=== PATIENT | male | born 1940 | race Caucasian/White ===

== ENCOUNTER → 2023-05-11 | Outpatient (CLI) | payer MEDICARE ==
[2023-05-11 20:19] LABS: INR 0.94 sec (0.93-1.11); Prothrombin Time 10.7 sec (9.9-11.9)
== END | disposition home or self-care (01) ==
LOC: LABPAT 13:06
PROVIDERS: ATTEND Orthopaedic Surgery
DX: Z01.812 Encounter for preprocedural laboratory examination (principal); Z22.322 Carrier or suspected carrier of Methicillin resistant Staphylococcus aureus
CPT/HCPCS: 85610; 87070

== ENCOUNTER 2023-05-15 07:59 | Observation (INO) | payer MEDICARE ==
--- NOTE | 2023-05-14 14:17 | HP ---
HISTORY AND PHYSICAL DATE OF SURGERY: 05/15/2023. HISTORY OF PRESENT ILLNESS: Rory Moody is an 82-year-old gentleman seen with symptomatic left knee osteoarthritis, failing conservative treatment measures. Options were discussed. He elected to proceed with left total knee arthroplasty. Consents obtained. Medical clearance was provided by Dr. Whitley. PAST MEDICAL HISTORY: Noncontributory. PAST SURGICAL HISTORY: Noncontributory. DAILY MEDICATIONS: Metoprolol. ALLERGIES: None. SOCIAL HISTORY: Denies tobacco use. PHYSICAL EVALUATION OF LEFT KNEE: Range of motion is -12 to 85 degrees. Tenderness in the medial joint line. Crepitus along the medial patellofemoral compartments with range of motion. Pain with patellofemoral compression. Ligaments are stable. Hip rotation without pain. Distal neurovascular exam intact. RADIOGRAPHS: Left knee radiographs reveal severe osteoarthritic changes. IMPRESSION: 1. Left knee osteoarthritis. 2. Hypertension. PLAN: Left total knee arthroplasty. MMODL / IJN: [id number] /
[~2023-05-15 07:59] MED LIST: ACETAMINOPHEN TAB 500 MG TAB PO PRN; DEXAMETHASONE SOD PHOSPHATE 4 MG/ML 1 ML VIAL IV ONE; HYDROmorphone 0.5 MG/0.5 ML SYRINGE IVP PRN; MELOXICAM 7.5 MG TAB PO PRN; MIDAZOLAM 2 MG/2 ML VIAL IV PRN; ONDANSETRON 4 MG/2 ML VIAL IVP ONE; TRANEXAMIC 1,000 MG/100ML-NACL 1,000 MG in SALINE 1 100ML.BAG IVPB PRN
[2023-05-15] MEDS: LACTATED RINGERS 1,000 ML IV SCH (08:35)
[2023-05-15] MEDS ORDERED: MIDAZOLAM 2 MG/2 ML VIAL IVP ONE (09:01)
[2023-05-15] MEDS ORDERED: fentaNYL (PF) 50 MCG/ML 2 ML AMP IVP ONE (09:05)
--- NOTE | 2023-05-15 09:27 | P.ANPRN ---
Procedure Note - Anesthesia - Nerve Block Performed Left Adductor Canal Time Out Performed: Yes (09:00) Date of Procedure: 05/15/23 Procedure Start Time: Procedure Stop Time: Location of Patient: PreOp Indication: Acute Post-Operative Pain, Requested by Surgeon (Dr Rios) Sedation Type: Sedate with meaningful contact maintained Preparation: Sterile Prep, Sterile Dressing Position: Supine Catheter: Indwelling Needle Types: Pajunk Ultrasound used to visualize needle placement: Yes Ultrasound used to observe medication spread: Yes Injectate: 0.5% Ropivacaine (see comment for volume) (20cc) Blood Aspirated: No Pain Paresthesia on Injection Noted: No Resistance on Injection: Normal Image Stored and Saved: Yes Events: Uneventful and Well Tolerated
[2023-05-15] MEDS ORDERED: ROPIVACAINE 1,100 MG, SODIUM CHLORIDE 0.9% 500 ML 330 ML, EMPTY PAIN BALL 1 EACH MISCELLANE PRN ×2 (09:28)
--- NOTE | 2023-05-15 09:28 | P.ANPRN ---
Procedure Note - Anesthesia - Nerve Block Performed Left iPack Time Out Performed: Yes Date of Procedure: 05/15/23 Procedure Start Time: :08 Procedure Stop Time: 09:12 Location of Patient: PreOp Indication: Acute Post-Operative Pain, Requested by Surgeon (Dr Godinez) Sedation Type: Sedate with meaningful contact maintained Preparation: Sterile Prep Position: Supine Catheter: None Needle Types: Pajunk Needle Gauge: 21 Ultrasound used to visualize needle placement: Yes Ultrasound used to observe medication spread: Yes Injectate: 0.5% Ropivacaine (see comment for volume) (15cc +5cc PF Normal saline) Blood Aspirated: No Pain Paresthesia on Injection Noted: No Resistance on Injection: Normal Image Stored and Saved: Yes Events: Uneventful and Well Tolerated
[2023-05-15] MEDS ORDERED: TRANEXAMIC 1,000 MG/100ML-NACL PREMIX BAG ONE (10:23)
[2023-05-15] MEDS ORDERED: SODIUM CHLORIDE 0.9% (PF) 10 ML VIAL ONE (10:23)
[2023-05-15] MEDS ORDERED: ROPIVACAINE 5 MG/ML 30 ML VIAL ONE (10:23)
[2023-05-15] MEDS ORDERED: fentaNYL (PF) 50 MCG/ML 2 ML AMP ONE (10:23)
[2023-05-15] MEDS ORDERED: PROPOFOL 10 MG/ML 20 ML VIAL IV ONE (10:23)
[2023-05-15] MEDS ORDERED: ceFAZolin 1,000 MG in SODIUM CHLORIDE 0.9% 1,000 ML IRRIGATION ONE (10:28)
[2023-05-15] MEDS ORDERED: LACTATED RINGERS 1,000 ML IV ONE (11:00)
[2023-05-15] MEDS ORDERED: HYDROcodone/APAP 5-325MG 1 EACH TAB PO PRN (12:29)
[2023-05-15] MEDS ORDERED: NALOXONE 0.4 MG/ML 1 ML VIAL IV PRN (12:29)
[2023-05-15] MEDS ORDERED: HYDROmorphone 0.5 MG/0.5 ML SYRINGE IVP PRN ×2 (12:29)
[2023-05-15] MEDS ORDERED: HYDROmorphone 1 MG/ML 1 ML SYRINGE IVP PRN (12:29)
[2023-05-15] MEDS ORDERED: ONDANSETRON 4 MG/2 ML VIAL IVP PRN (12:29)
--- NOTE | 2023-05-15 12:29 | P.OP ---
Date of Procedure: 05/15/23 Preoperative Diagnosis: Left knee osteoarthritis Postoperative Diagnosis: Left knee osteoarthritis Procedure(s) Performed: Left total knee arthroplasty Implants: 1. Depuy attune size 8 left cruciate retaining cemented femur 2. Depuy attune size 9 fixed bearing cemented tibial baseplate 3. Depuy attune size 8 fixed bearing cruciate retaining 5 mm polyethylene tibial insert 4. Juliana attune 41 mm all polyethylene cemented patella Anesthesia: regional (Adductor canal catheter, Ipack block), spinal Surgeon: Jamison Rios Tray Setter #1: Pillo Vallejo Estimated Blood Loss (ml): 40 Pathology: none sent Condition: stable Disposition: PACU Indications for Procedure: 82-year-old patient seen with symptomatic left knee osteoarthritis. After having treatment options discussed, he elected to proceed with total knee arthroplasty. Operative Findings: See description of procedure Description of Procedure: Patient was taken to the operative suite after having an adductor canal catheter placed by the department of anesthesia. Patient underwent a spinal anesthetic by the department of anesthesia. Patient was given preoperative IV intake antibiotics and TXA. A well-padded tourniquet was placed about the left lower extremity. The lower extremity was then prepped and draped in the normal sterile orthopedic fashion. The extremity was elevated, a tourniquet was insufflated to 300. A standard anterior incision was made sharply through skin. Dissection was taken down through the subcutaneous soft tissues down to the extensor mechanism. A medial arthrotomy was performed, patella was everted and knee was flexed. There was advanced osteoarthritis noted. I introduced my distal intramedullary femoral drill. I then introduced the distal femoral cutting jig. Pillo HOLDER secured the cutting jig with 2 pins. I held retractors in position while Pillo HOLDER performed the distal femoral resection through the guide area we now removed her distal femoral cutting guide. We now placed our 4-in-1 femoral cutting block and positioned and it was secured with 2 pins by Pillo HOLDER while I held the block in position. The distal femoral finishing was now completed. A proximal tibial cutting guide was positioned. I held the guide in the appropriate position with both hands while Pillo HOLDER inserted stabilizing pins into the guide. Proximal tibial cut was made. We now placed a trial femoral component into position, along with an appropriate size tibial tray and insert. We now took the knee through range of motion and had full extension good flexion and good overall soft tissue balance noted. The patella was everted and stabilized with 2 towel clips held by Pillo HOLDER while I performed a flush with patellar quad tendon utilizing a fresh s awblade. We templated the patella, appropriate drill holes were made. An appropriate trial patella was positioned, knee was taken through full range of motion with the patella tracking very nicely. The trial patella was removed. Drill holes were made through the femoral component. All trial components were removed after marking off the appropriate rotation of the tibia. Retractors were now positioned along the proximal tibia. An appropriate keel punch was made with the appropriate size tibial guide by myself on Pillo HOLDER assisted by holding retractors. At this point appropriate size implants were chosen and opened. The joint was irrigated copiously with pulse lavage mechanical irrigation. The wound was irrigated with pulse lavage mechanical irrigation. We mixed antibiotic methylmethacrylate. We placed the knee into flexion. We placed multiple retractors assisted by Pillo HOLDER to expose the proximal tibia. Once the methyl methacrylate was ready, the tibial component was cemented into place removing any excess methylmethacrylate form by both myself and Pillo HOLDER. The femoral component was cemented into place removing the removing any excess methylmethacrylate performed by both myself and Pillo HOLDER. We then inserted the appropriate size polyethylene tibial insert. We made sure that it was locked into position. We took the knee into full extension, and then back in a flexion making sure we had removed any excess methylmethacrylate. The patellar component was then cemented down and secured with clamp. Excess methylmethacrylate removed. We kept the knee in full extension, patellar clamp in position until methylmethacrylate had hardened. Once it had hardened the patellar clamp was removed. The knee was taken through full range of motion. The patella tracked nicely. There was good soft tissue balancing. The tourniquet was now released. Additional hemostasis was achieved via electrocautery. A second gram of TXA was given. The wound again was irrigated with pulse lavage mechanical irrigation. The extensor mechanism was repaired with Ethibond suture. We checked the repair with range of motion and it was stable. The subcutaneous soft tissues were repaired with Vicryl in layers. The skin was approximated with pernio/Dermabond. Sterile dressings were applied followed by loose web roll and Ralph bandage. The patient was trans ferred to a bed, and taken to recovery in stable and satisfactory condition. Pillo HOLDER assisted with this complex procedure.
--- NOTE | 2023-05-15 13:58 | XR ---
EXAMINATION TYPE: XR knee limited LT DATE OF EXAM: 05/15/2023 1:34 PM INDICATION: Patient age:Male; 82 years old; Reason for study: Evaluation for Postop abnormality and alignment; [facility]. COMPARISON: 04/04/2023. TECHNIQUE: The Left knee(s) was examined in Frontal, lateral and oblique projections. FINDINGS: Status post total knee arthroplasty changes with hardware in appropriate alignment and in tact. No evidence of fracture. Subcutaneous lucencies and lucencies within the joint consistent with surgical changes. Atherosclerosis of the arterial vasculature. IMPRESSION: Status post total knee arthroplasty changes with hardware intact and appropriate alignment. No fractu res identified.
[2023-05-15] MEDS: SODIUM CHLORIDE 0.9% 1,000 ML IV SCH (17:17)
[2023-05-15] MEDS ORDERED: SENNOSIDES-DOCUSATE SODIUM 1 EACH TAB PO SCH (21:00)
[2023-05-15] MEDS: CHOLECALCIFEROL 25 MCG (1000 IU) TABLET PO SCH (21:13)
[2023-05-15] MEDS: VIT A,C & E-LUTEIN-MINERALS 1 EACH TAB PO SCH (21:14)
--- NOTE | 2023-05-15 21:45 | P.CONS ---
History of Present Illness - Reason for Consult Consult date: 05/15/23 Medical management Requesting physician: Jamison Rios - Chief Complaint Left knee surgery - History of Present Illness Very pleasant 82-year-old patient who follows with Dr. George Whitley. Patient underwent left total knee arthroplasty. Postprocedure left knee in a dressing. No nausea vomiting. No chest pain or shortness breath. Did tolerate some diet. Patient does have some intermittent insomnia does take Toprol for anxiety and has arthritis in the joints. Does have a cane and a walker at home. Currently propped up in bed, comfortable Review of systems: GEN.: None EYES: None HEENT: None NECK: None RESPIRATORY: None CARDIOVASCULAR: None GASTROINTESTINAL: None GENITOURINARY: None MUSCULOSKELETAL: Joint pains LYMPHATICS: None HEMATOLOGICAL: None PSYCHIATRY: None NEUROLOGICAL: Intermittent insomnia Past medical history to include: Osteoarthritis, anxiety Social history: Patient retired from [employer] working on [employer]. Did smoke for a short time. No alcohol. Lives alone. Physical examination: VITAL SIGNS: 97.8, 61, 18, 1 57 x 71, 97% on 2 L GENERAL: BMI 31.9, declining with awake and appears comfortable. EYES: Pupils equal. Conjunctiva normal. HEENT: External appearance of nose and ears normal, oral cavity grossly normal. NECK: JVD not raised; masses not palpable. HEART: First and second heart sounds are normal; no edema. LUNGS: Respiratory rate normal; clear to auscultation. ABDOMEN: Soft, nontender, liver spleen not palpable, no masses palpable. PSYCH: Alert and oriented x3; mood and affect normal. MUSCULOSKELETAL:No Clubbing/cyanosis;muscles-grossly intact. OA. Dressing over the left knee. NEUROLOGICAL: Cranial nerves grossly intact; no facial asymmetry, power and sensation grossly intact. LYMPHATICS: No lymph nodes palpable in the axilla and neck INVESTIGATIONS, reviewed in the clinical context: No prior lab work. Assessment and plan: -Left total knee arthroplasty. IV Ancef for infection prophylaxis. Subcu Lovenox for DVT prophylaxis. Pain control. -Primary osteoarthritis Pain control when necessary -Insomnia, intermittent Melatonin as needed. -Anxiety not otherwise specified Patient takes Toprol-XL for the same. Discussed with the patient. -Essential hypertension Patient is on Toprol-XL. We'll see how patient does with better control as currently blood pressure running on the higher side. Care was discussed with the patient. Questions answered. Thank you Dr. Rios Past Medical History Past Medical History: No Reported History History of Any Multi-Drug Resistant Organisms: None Reported Additional Past Surgical History / Comment(s): Lens placed in right eye. Left Total knee arthroplasty. Past Anesthesia/Blood Transfusion Reactions: No Reported Reaction Additional Past Anesthesia/Blood Transfusion Reaction / Comm: Patient has never general anesthesia. Past Psychological History: Anxiety Additional Psychological History / Comment(s): Takes Toprol XL for this Smoking Status: Former smoker Past Alcohol Use History: None Reported Additional Past Alcohol Use History / Comment(s): Quit smoking many yrs ago. Past Drug Use History: None Reported - Past Family History Mother Family Medical History: No Reported History Medications and Allergies Home Medications Medication Instructions Recorded Confirmed Type Cholecalciferol [Vitamin D3 (25 50 mcg PO BID 05/11/23 05/15/23 History Mcg = 1000 Iu)] Metoprolol Succinate (ER) [Toprol 50 mg PO QAM 05/11/23 05/15/23 History Xl] Prevagen Extra Strength 1 tab PO DAILY 05/11/23 05/15/23 History Vit C/E/Zn/Coppr/Lutein/Zeaxan 1 each PO BID 05/11/23 05/15/23 History [Preservision Areds 2 Softgel] Vitamin B. 250 mg PO DAILY 05/11/23 05/15/23 History Allergies Allergy/AdvReac Type Severity Reaction Status Date / Time No Known Allergies Allergy Verified 05/15/23 08:24 Physical Exam Vitals: Vital Signs Temp Pulse Resp BP BP BP Pulse Ox 05/15/23 21:12 98 05/15/23 19:12 97.8 F 61 18 157/71 97 05/15/23 16:42 163/80 05/15/23 16:40 172/80 05/15/23 16:31 98.6 F 66 18 189/88 95 05/15/23 16:00 52 L 17 156/76 95 05/15/23 15:30 50 L 16 183/86 96 05/15/23 15:00 48 L 16 169/89 99 05/15/23 14:30 52 L 16 150/72 99 05/15/23 14:00 51 L 16 148/73 99 05/15/23 13:30 46 L 16 151/70 99 05/15/23 13:15 48 L 16 155/75 99 05/15/23 13:00 50 L 16 132/68 96 05/15/23 12:47 97.5 F L 54 L 16 122/61 94 L 05/15/23 09:44 50 L 14 148/77 99 05/15/23 09:38 48 L 14 149/70 99 05/15/23 09:20 44 L 16 156/68 97 05/15/23 08:18 97.7 F 57 L 16 223/98 98 Intake and Output 05/15/23 05/15/23 05/15/23 06:59 14:59 22:59 Intake Total 1751 Output Total 40 Balance 1711 Intake: IV 1751 Output: Estimated Blood Loss 40 Other: # Voids 1 Weight 106.8 kg 106.8 kg
--- NOTE | 2023-05-16 07:22 | P.PN ---
Progress Note - Text Progress Note Date: 05/16/23 (710) Anesthesiology Postop day 1 status post total knee arthroplasty with adductor canal catheter. Patient doing well. VAS 5 out of 10 out of 10. Gross strength intact in lower extremity. Afebrile. Denies alterations in sensorium. Catheter site intact. Heart regular rate Lungs nonlabored Abdomen nondistended Assessment: Postop day 1 status post total knee arthroplasty with adductor canal catheter Plan: 1.All questions answered. Maintain catheter 2 more days with patient removal at home. Instructions to be given at discharge. 2.This note was dictated using Hand Talk software. Please be advised there is a potential for misspellings or errors in manager [employer].
[2023-05-16] MEDS: SODIUM CHLORIDE 0.9% 1,000 ML IV SCH (07:50)
[2023-05-16] MEDS: LACTATED RINGERS 1,000 ML IV SCH (07:50)
[2023-05-16] MEDS: CHOLECALCIFEROL 25 MCG (1000 IU) TABLET PO SCH (08:06)
[2023-05-16] MEDS: HYDROcodone/APAP 7.5-325MG 1 EACH TAB PO PRN ×2 (08:06→13:08)
[2023-05-16] MEDS ORDERED: ENOXAPARIN 30 MG/0.3 ML SYRINGE SQ SCH (09:00)
[2023-05-16] MEDS ORDERED: METOPROLOL SUCCINATE (ER) 50 MG TAB.ER.24H PO SCH (09:00)
[2023-05-16] MEDS ORDERED: VITAMIN B PO SCH (09:00)
[2023-05-16 11:00] LABS: Basophils # (A) 0.02 X 10*3/uL (0.00-0.10); Basophils % (A) 0.2 %; Eosinophils # (A) 0.02 X 10*3/uL (0.04-0.35); Eosinophils % (A) 0.2 %; HCT 32.9 % (39.6-50.0); HGB 10.5 d/dL (13.0-17.0); Lymphocytes % (A) 9.4 %; MCH 30.1 pg (27.0-32.0); MCHC 31.9 d/dL (32.0-37.0); MCV 94.3 FL (80.0-97.0); Mean Platelet Volume 10.7 FL (9.5-12.2); Monocytes # (A) 1.02 X 10*3/uL (0.20-1.00); Monocytes % (A) 10.7 %; NRBC Per 100 WBC 0 X 10*3/uL (0.00-0.01); Neutrophils # (A) 7.57 X 10*3/uL (1.80-7.70); Neutrophils % (A) 79.3 %; Platelet Count 144 X 10*3/uL (140-440); RBC 3.49 X 10*6/uL (4.40-5.60); RDW 13.9 % (11.5-14.5); WBC 9.55 X 10*3/uL (4.50-10.00)
[2023-05-16] MEDS ORDERED: TAMSULOSIN 0.4 MG CAP.ER.24H PO SCH (11:15)
[2023-05-16] MEDS: VIT A,C & E-LUTEIN-MINERALS 1 EACH TAB PO SCH (11:30)
--- NOTE | 2023-05-16 12:04 | P.PN ---
Subjective Progress Note Date: 05/16/23 Principal diagnosis: Left knee osteoarthritis Patient was seen at bedside this morning sitting up in chair with legs elevated. Patient says he did do well with therapy this morning. He says he walked around the room. Patient says he is looking forward to going home later today. Patient says he has not been able to urinate since surgery. Patient denies any previous difficulties urinating in the past. Patient says his pain is controlled with pain medication. Patient says he did have a difficult time sleeping last night in the hospital. Patient denies chest pain, fever, shortness breath, nausea, vomiting, change in vision, loss of bowel/bladder control. Objective - Vital Signs Vital signs: Vital Signs Temp 98.5 F 05/16/23 06:30 Pulse 82 05/16/23 06:30 Resp 17 05/16/23 06:30 BP 138/74 05/16/23 08:13 Pulse Ox 95 05/16/23 08:13 FiO2 Intake & Output 05/15/23 05/16/23 05/16/23 18:59 06:59 18:59 Intake Total 1751 Output Total 40 950 Balance 1711 -950 Weight 106.8 kg Intake: IV 1751 Output: Urine 950 Straight 950 Estimated Blood Loss 40 Other: Voiding Method Toilet # Voids 1 4 - Exam Left knee: Incision is clean, dry, and intact. The silver foam dressing is in good condition. There is minimal soft tissue swelling and ecchymosis surrounding the medial and lateral aspects of the incision. Calf is soft, no tenderness with palpation. Plantar flexion, dorsiflexion, EHL, FHL are intact. Sensory exam to light touch throughout the extremity is intact, dorsal pedis pulses 2+. - Labs CBC & Chem 7: 05/16/23 04:21 Labs: Abnormal Lab Results - Last 24 Hours (Table) 05/16/23 Range/Units 04:21 RBC 3.49 L (4.40-5.60) X 10*6/uL Hgb 10.5 L (13.0-17.0) d/dL Hct 32.9 L (39.6-50.0) % MCHC 31.9 L (32.0-37.0) d/dL Monocytes # 1.02 H (0.20-1.00) X 10*3/uL Eosinophils # 0.02 L (0.04-0.35) X 10*3/uL Assessment and Plan Assessment: 1. Left knee osteoarthritis -Postop day 1 status post left total knee arthroplasty Plan: 1. Left knee osteoarthritis - patient stable at bedside this morning. Patient did do well with therapy. He does have a walker for home. Plan for discharge home later today. Patient has been unable to urinate on his own. Patient has been straight cathed a couple times. postvoid residual 491 mL. patient did go home with [facility]. Patient to go home on Flomax daily and to follow up with urology in a few days. 2. Appreciate medical management 3. Pain management - [place] 4. DVT prophylaxis - Lovenox in hospital. Going home with aspirin 81 mg twice a day 30 days 5. GI prophylaxis - senna 6. Encourage incentive spirometer use 7. PT/OT - weightbearing as tolerated with walker 8. Discharge planning - discharge home today without services Time with Patient: Less than 30
--- NOTE | 2023-05-16 12:14 | P.DS ---
Providers Expected date of discharge: 05/16/23 Attending physician: Jamison Rios Consults: 05/15/23 12:29 Consult Physician Routine Consulting Provider: George Whitley Consult Reason/Comments: Medical management Do you want consulting provider notified?: Yes 05/15/23 16:32 Consult Physician Routine Consulting Provider: Mark Roe Consult Reason/Comments: medical management Do you want consulting provider notified?: Yes Primary care physician: George Whitley Hospital Course: Date of admission: 05/15/2023 Date of discharge: 05/16/2023 Admission diagnosis: Left knee as her arthritis Discharge diagnosis: Same Attending physician: Dr. Rios Surgical procedures: Left total knee arthroplasty Brief history: Patient is a 82-year-old male with a history of progressive primary left knee osteoarthritis. At this point patient has failed conservative treatment measures and has opted to proceed with a elective left total knee arthroplasty. Hospital course: Details of patient's surgery can be found in operative report. Patient tolerated the procedure well and was subsequently transported to orthopedic floor. Patient's orthopeidc and medical care was provided daily. Patient had daily laboratory tests performed for evaluation of overall blood counts. Patient had daily physical therapy to include strengthening range of motion as well as education with walker ambulation. Patient was treated with Lovenox for their postoperative DVT prophylaxis during their inpatient stay. Patient was noted to have a relatively uneventful postoperative course. Patient reported satisfactory pain control with oral pain medications by postoperative day 1. Patient showed satisfactory progress with physical therapy. Patient moved steadily through the program and had no difficulty meeting the goals by postoperative day 1. Given patient's otherwise satisfactory course and having met physical therapy goals, plan is to discharge patient home with health services on postoperative day 1. Discharge condition/disposition: Patient will be discharged home with health services in stable condition. Discharge medications: Instructions are given on resumption of patient's normal daily medications per primary care recommendation, in addition patient will be prescribed [place]; Flomax; senna; aspirin 81 mg twice a day 30 days. Discharge instructions: 1. Wound care and infection precautions, keep incision dry and covered while showering, no lotions, creams, moisturizers. No soaking, tubs, pools, hottubs. Do not scrub over the incision. 2. Weight-bear as tolerated with walker / cane until follow-up. 3. Ice and elevate when necessary. Do not exceed 20 minutes per hour with ice pack. 4. Utilize compression sleeve until seen at first follow up appointment. 5. Visiting nursing care. 6. Home physical therapy.. 7. Pain meds and anticoagulants per prescription. 8. Pain medication has potential to cause constipation. Increase oral fluid and fiber intake. Contact primary care provider if you have not had a bowel movement within 48 hours after discharge 9. No anti-inflammatory medication until discussed at first post operative visit, this including Motrin, Aleve, Mobic, Diclofenac. 10. Follow up in office at 2 weeks postop with Fernando Humphrey PA-C / Pillo Vallejo PA-C 11. Follow up with your primary care doctor 7-10 days after discharge. 12. Contact [facility] with any questions, . Keep incision clean, dry, intact. While showering, cover silver foam dressing with Saran wrap. Silver foam dressing may be removed in 7 days, 05/22/2023. Once dressing is removed, it is okay to shower directly over incision Assessment: Left knee osteoarthritis Procedures: Left total knee arthroplasty Patient Condition at Discharge: Good Plan - Discharge Summary Discharge Rx Participant: No New Discharge Prescriptions: New Aspirin [Adult Low Dose Aspirin EC] 81 mg PO BID #60 tab Tamsulosin HCl [Flomax] 0.4 mg PO DAILY #7 capsule HYDROcodone/APAP 7.5-325MG [[place] 7.5-325] 1 - 2 tab PO Q6H PRN #36 tab PRN Reason: Pain Sennosides/Docusate Sodium [Senna Plus 8.6-50 mg Softgel] 1 each PO DAILY #20 capsule No Action Cholecalciferol [Vitamin D3 (25 Mcg = 1000 Iu)] 50 mcg PO BID Vitamin B. 250 mg PO DAILY Metoprolol Succinate (ER) [Toprol Xl] 50 mg PO QAM Vit C/E/Zn/Coppr/Lutein/Zeaxan [Preservision Areds 2 Softgel] 1 each PO BID Prevagen Extra Strength 1 tab PO DAILY Discharge Medication List Cholecalciferol [Vitamin D3 (25 Mcg = 1000 Iu)] 50 mcg PO BID 05/11/23 [History] Metoprolol Succinate (ER) [Toprol Xl] 50 mg PO QAM 05/11/23 [History] Prevagen Extra Strength 1 tab PO DAILY 05/11/23 [History] Vit C/E/Zn/Coppr/Lutein/Zeaxan [Preservision Areds 2 Softgel] 1 each PO BID 05/11/23 [History] Vitamin B. 250 mg PO DAILY 05/11/23 [History] Aspirin [Adult Low Dose Aspirin EC] 81 mg PO BID #60 tab 05/16/23 [Rx] HYDROcodone/APAP 7.5-325MG [[place] 7.5-325] 1 - 2 tab PO Q6H PRN #36 tab 05/16/23 [Rx] Sennosides/Docusate Sodium [Senna Plus 8.6-50 mg Softgel] 1 each PO DAILY #20 capsule 05/16/23 [Rx] Tamsulosin HCl [Flomax] 0.4 mg PO DAILY #7 capsule 05/16/23 [Rx] Follow up Appointment(s)/Referral(s): [facility],Equipment [NON-STAFF] - As Needed (Please call [facility] once home to set up the delivery of the Continuous Passive Motion (CPM) machine. ) [facility] [NON-STAFF] - 1-2 Days ([facility] will call you to schedule your in home nursing and physical therapy visits. ) Patricio Andrew MD [STAFF PHYSICIAN] - 1-2 Days Sam Humphrey PAC [PHYSICIAN HOSTING ENGINEER] - 2 Weeks Patient Instructions/Handouts: Knee Replacement (DC) Activity/Diet/Wound Care/Special Instructions: Discharge instructions: 1. Wound care and infection precautions, keep incision dry and covered while showering, no lotions, creams, moisturizers. No soaking, tubs, pools, hottubs. Do not scrub over the incision. 2. Weight-bear as tolerated with walker / cane until follow-up. 3. Ice and elevate when necessary. Do not exceed 20 minutes per hour with ice pack. 4. Utilize compression sleeve until seen at first follow up appointment. 5. Visiting nursing care. 6. Home physical therapy. 7. Pain meds and anticoagulants per prescription. 8. Pain medication has potential to cause constipation. Increase oral fluid and fiber intake. Contact primary care provider if you have not had a bowel movement within 48 hours after discharge 9. No anti-inflammatory medication until discussed at first post operative visit, this including Motrin, Aleve, Mobic, Diclofenac. 10. Follow up in office at 2 weeks postop with Fernando Humphrey PA-C / Pillo Vallejo PA-C 11. Follow up with your primary care doctor 7-10 days after discharge. 12. Contact [facility] with any questions, . Keep incision clean, dry, intact. While showering, cover silver foam dressing with Saran wrap. Silver foam dressing may be removed in 7 days, 05/22/2023. Once dressing is removed, it is okay to shower directly over incision Discharge Disposition: HOME WITH HOME HEALTH SERVICES
[2023-05-16 13:28] VITALS: BP 136/85; PULSE 69; RESP 18; TEMP 98.6
--- NOTE | 2023-05-16 19:46 | P.PN ---
Progress Note - Text Progress Note Date: 05/16/23 - Chief Complaint Left knee surgery - History of Present Illness Very pleasant 82-year-old patient who follows with Dr. George Whitley. Patient underwent left total knee arthroplasty. Postprocedure left knee in a dressing. No nausea vomiting. No chest pain or shortness breath. Did tolerate some diet. Patient does have some intermittent insomnia does take Toprol for anxiety and has arthritis in the joints. Does have a cane and a walker at home. Currently propped up in bed, comfortable 05/16/2023: Doing better. Pain control. No nausea vomiting. Did tolerate her diet. Did ambulate. Medications reviewed. 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 Did smoke for a short time. No alcohol. Lives alone. Physical examination: VITAL SIGNS: 98.6, 69, 18, 1 3695, 95% room air GENERAL: BMI 31.9, sitting up, comfortable EYES: Pupils equal. Conjunctiva normal. HEENT: External appearance of nose and ears normal, oral cavity grossly normal. NECK: JVD not raised; masses not palpable. HEART: First and second heart sounds are normal; no edema. LUNGS: Respiratory rate normal; clear to auscultation. ABDOMEN: Soft, nontender, liver spleen not palpable, no masses palpable. PSYCH: Alert and oriented x3; mood and affect normal. MUSCULOSKELETAL:No Clubbing/cyanosis;muscles-grossly intact. OA. Dressing over the left knee. INVESTIGATIONS, reviewed in the clinical context: White count 9.5 hemoglobin 10.5 platelets 144 No prior lab work. Assessment and plan: -Left total knee arthroplasty. IV Ancef for infection prophylaxis. Subcu Lovenox for DVT prophylaxis. Pain control. -Primary osteoarthritis Pain control when necessary -Probable acute postprocedure blood loss anemia At ferrous sulfate -Insomnia, intermittent Melatonin as needed. -Anxiety not otherwise specified Patient takes Toprol-XL for the same. Discussed with the patient. -Essential hypertension Patient is on Toprol-XL. At ferrous sulfate. Follow-up with Dr. Whitley. Discussed. Thank you Dr. Rios
== END 2023-05-16 14:40 | disposition home health service (06) ==
LOC: OR 07:59 → 4SSUR 12:47 → OR 05-16 12:31
PROVIDERS: ADMIT Orthopaedic Surgery; ATTEND Orthopaedic Surgery
DX: M17.12 Unilateral primary osteoarthritis, left knee (principal); G89.18 Other acute postprocedural pain; F41.9 Anxiety disorder, unspecified; G47.00 Insomnia, unspecified; I10 Essential (primary) hypertension; Z87.891 Personal history of nicotine dependence; Z79.899 Other long term (current) drug therapy
CPT/HCPCS: 94760; 97161; 64999; 64448; 85025; 73560; 27447; G0378; C1776; C1713 ×2; C1751; J2250; J1100; J0690 ×3; J2405 ×2; J3010; J1650; J1170 ×2; J2795; J2704

== ENCOUNTER → 2023-12-01 | Outpatient (CLI) | payer MEDICARE ==
[2023-12-01 15:10] LABS: HCT 36.9 % (39.6-50.0); MCH 29.9 pg (27.0-32.0); MCHC 32.5 g/dL (32.0-37.0); Mean Platelet Volume 10.3 FL (9.5-12.2); NRBC Per 100 WBC 0 X 10*3/uL (0.00-0.01); Platelet Count 208 X 10*3/uL (140-440); RBC 4.01 X 10*6/uL (4.40-5.60); RDW 14.5 % (11.5-14.5); WBC 4.99 X 10*3/uL (4.50-10.00)
[2023-12-01 15:11] LABS: Basophils # (A) 0.06 X 10*3/uL (0.00-0.10); Basophils % (A) 1.2 %; Eosinophils # (A) 0.18 X 10*3/uL (0.04-0.35); Eosinophils % (A) 3.6 %; Lymphocytes # (A) 1.26 X 10*3/uL (0.90-5.00); Lymphocytes % (A) 25.3 %; Neutrophils # (A) 2.97 X 10*3/uL (1.80-7.70); Neutrophils % (A) 59.5 %
[2023-12-01 15:29] LABS: INR 1.05 sec (0.93-1.11); Prothrombin Time 11.3 sec (9.9-11.9)
[2023-12-01 15:32] LABS: BUN/Creat Ratio 26.86 Ratio (12.00-20.00); Blood Urea Nitrogen 18.8 mg/dL (9.0-27.0); Calcium 9.6 mg/dL (8.7-10.3); Carbon Dioxide 27.2 mmol/L (21.6-31.8); Chloride 105 mmol/L (96-109); Glucose 124 mg/dL (70-110); Potassium 4.1 mmol/L (3.5-5.5); Sodium 142 mmol/L (135-145)
== END | disposition home or self-care (01) ==
LOC: LABPAT 08:16
PROVIDERS: ATTEND Orthopaedic Surgery
DX: Z01.812 Encounter for preprocedural laboratory examination (principal); Z22.322 Carrier or suspected carrier of Methicillin resistant Staphylococcus aureus; M17.11 Unilateral primary osteoarthritis, right knee; M25.561 Pain in right knee; I10 Essential (primary) hypertension
CPT/HCPCS: 36415; 80048; 85025; 85610; 87070; 93005

== ENCOUNTER 2023-12-18 06:55 | Inpatient (IN) | payer MEDICARE ==
[2023-12-12 13:17] VITALS: BMI 30.5
--- NOTE | 2023-12-17 20:28 | HP ---
HISTORY AND PHYSICAL DATE OF SURGERY: 12/18/2023. HISTORY OF PRESENT ILLNESS: Rory Moody is an 82-year-old gentleman seen with symptomatic right knee osteoarthritis. We discussed options regarding treatment. He elected to proceed with right total knee arthroplasty. Consent was obtained. Medical clearance was provided by Dr. Stacy. PAST MEDICAL HISTORY: Hypertension. PAST SURGICAL HISTORY: Noncontributory. DAILY MEDICATIONS: 1. Metoprolol. 2. Hydrocodone. ALLERGIES: None reported. SOCIAL HISTORY: Denies tobacco use. PHYSICAL EVALUATION OF THE RIGHT KNEE: Range of motion is negative 4 to 90 degrees. Tenderness along the medial joint line. Crepitance along the medial patellofemoral compartments with range of motion. Pain with patellofemoral compression. Ligaments stable. Hip rotation without pain. His distal neurovascular exam is intact. IMAGING STUDIES: Right knee x-rays reveal severe osteoarthritic changes. IMPRESSION: 1. Right knee osteoarthritis. 2. Hypertension. PLAN: Right total knee arthroplasty. MMODL / IJN: [id number] /
[~2023-12-18 06:55] MED LIST changes: -ACETAMINOPHEN TAB 500 MG TAB PO PRN; -DEXAMETHASONE SOD PHOSPHATE 4 MG/ML 1 ML VIAL IV ONE; -HYDROmorphone 0.5 MG/0.5 ML SYRINGE IVP PRN; -MELOXICAM 7.5 MG TAB PO PRN; -MIDAZOLAM 2 MG/2 ML VIAL IV PRN; -ONDANSETRON 4 MG/2 ML VIAL IVP ONE
[2023-12-18] MEDS: LACTATED RINGERS 1,000 ML IV ONE ×2 (07:46→13:00)
[2023-12-18] MEDS ORDERED: HYDROmorphone 0.5 MG/0.5 ML SYRINGE IVP PRN ×4 (07:49→11:12)
[2023-12-18] MEDS ORDERED: ONDANSETRON 4 MG/2 ML VIAL ONE (07:49)
[2023-12-18] MEDS ORDERED: LIDOCAINE 1% (10MG/ML) FOR IV START INTRADERMA PRN (07:49)
[2023-12-18] MEDS ORDERED: MIDAZOLAM 2 MG/2 ML VIAL IV PRN (07:49)
[2023-12-18] MEDS: DEXAMETHASONE SOD PHOSPHATE 4 MG/ML 1 ML VIAL IV ONE (08:05)
[2023-12-18] MEDS: ACETAMINOPHEN TAB 500 MG TAB PO PRN (08:05)
[2023-12-18] MEDS: ONDANSETRON 4 MG/2 ML VIAL IVP ONE (08:05)
[2023-12-18] MEDS: MELOXICAM 7.5 MG TAB PO PRN (08:05)
[2023-12-18] MEDS: MIDAZOLAM 2 MG/2 ML VIAL IVP ONE ×2 (08:17)
--- NOTE | 2023-12-18 09:03 | P.ANPRN ---
Procedure Note - Anesthesia - Nerve Block Performed Right Adductor Canal Infusion Time Out Performed: Yes (0817) Date of Procedure: 12/18/23 Procedure Start Time: 08:20 Procedure Stop Time: 08:35 Location of Patient: PreOp Indication: Acute Post-Operative Pain, Requested by Surgeon Sedation Type: Sedate with meaningful contact maintained Preparation: Sterile Prep, Sterile Dressing Position: Supine Catheter: Indwelling Needle Types: Pajunk Needle Gauge: 18 Ultrasound used to visualize needle placement: Yes Ultrasound used to observe medication spread: Yes Injectate: 0.5% Ropivacaine (see comment for volume) (20 mL of block solution containing 10 ML of 0.5% ropivacaine mixed with 10 ML of preservative-free normal saline) Narrative: 5 mL of block solution injected after catheter connected in place negative aspiration, and visualized under ultrasound to see the medication spread in the adductor canal Blood Aspirated: No Pain Paresthesia on Injection Noted: No Resistance on Injection: Normal Image Stored and Saved: Yes Events: Uneventful and Well Tolerated
--- NOTE | 2023-12-18 09:04 | P.ANPRN ---
Procedure Note - Anesthesia - Nerve Block Performed Right iPack Single Time Out Performed: Yes (0817) Date of Procedure: 12/18/23 Procedure Start Time: 08:20 Procedure Stop Time: 08:35 Location of Patient: PreOp Indication: Acute Post-Operative Pain, Requested by Surgeon Sedation Type: Sedate with meaningful contact maintained Preparation: Sterile Prep, Sterile Dressing Position: Supine Catheter: None Needle Types: Pajunk Needle Gauge: 21 Ultrasound used to visualize needle placement: Yes Ultrasound used to observe medication spread: Yes Injectate: 0.5% Ropivacaine (see comment for volume) (21 mL of block solution containing 10 ML of 0.5% ropivacaine mixed with 4 MG of dexamethasone, and 10 ML of preservative-free normal saline) Blood Aspirated: No Pain Paresthesia on Injection Noted: No Resistance on Injection: Normal Image Stored and Saved: Yes Events: Uneventful and Well Tolerated
[2023-12-18] MEDS: ceFAZolin 1,000 MG in SODIUM CHLORIDE 0.9% 1,000 ML IRRIGATION ONE (09:40)
[2023-12-18] MEDS ORDERED: ONDANSETRON 4 MG/2 ML VIAL IVP PRN (11:12)
[2023-12-18] MEDS ORDERED: HYDROcodone/APAP 5-325MG 1 EACH TAB PO PRN (11:12)
[2023-12-18] MEDS ORDERED: NALOXONE 0.4 MG/ML 1 ML VIAL IV PRN (11:12)
--- NOTE | 2023-12-18 11:12 | P.OP ---
Date of Procedure: 12/18/23 Preoperative Diagnosis: Right knee osteoarthritis Postoperative Diagnosis: Right knee osteoarthritis Procedure(s) Performed: Right total knee arthroplasty Implants: 1. DePuy attune size 8 right cruciate retaining cemented femur 2. DePuy attune size 9 fixed-bearing cemented tibial baseplate 3. DePuy attune size 8 fixed-bearing cruciate retaining 6 mm polyethylene tibial insert 4. DePuy attune 41 mm all polyethylene cemented patella Anesthesia: regional (Adductor canal catheter, iPAQ block), spinal Surgeon: Jamison Rios Facilities Assistant #1: Sam Humphrey Estimated Blood Loss (ml): 60 Pathology: none sent Condition: stable Disposition: PACU Indications for Procedure: 82-year-old gentleman seen with symptomatic right knee osteoarthritis. After having treatment options discussed, he elected to proceed with total knee arthroplasty Operative Findings: See description of procedure Description of Procedure: Patient was taken to the operative suite after having an adductor canal catheter placed by the department of anesthesia. Patient underwent a spinal anesthetic by the department of anesthesia. Patient was given preoperative IV intake antibiotics and TXA. A well-padded tourniquet was placed about the right lower extremity. The lower extremity was then prepped and draped in the normal sterile orthopedic fashion. The extremity was elevated, a tourniquet was insufflated to 300. A standard anterior incision was made sharply through skin. Dissection was taken down through the subcutaneous soft tissues down to the extensor mechanism. A medial arthrotomy was performed, patella was everted and knee was flexed. There was advanced osteoarthritis noted. I introduced my distal intramedullary femoral drill. I then introduced the distal femoral cutting jig. Fernando HOLDER secured the cutting jig with 2 pins. I held retractors in position while Fernando HOLDER performed the distal femoral resection through the guide area we now removed her distal femoral cutting guide. We now placed our 4-in-1 femoral cutting block and positioned and it was secured with 2 pins by Fernando HOLDER while I held the block in position. The distal femoral finishing was now completed. A proximal tibial cutting guide was positioned. I held the guide in the appropriate position with both hands well Fernando HOLDER inserted stabilizing pins into the guide. Proximal tibial cut was made. We now placed a trial femoral component into position, along with an appropriate size tibial tray and insert. We now took the knee through range of motion and had full extension good flexion and good overall soft tissue balance noted. The patella was everted and stabilized with 2 towel clips held by Fernando HOLDER while I performed a flush with patellar quad tendon utilizing a fresh sawblade. We templated the patella, appropriate drill holes were made. An appropriate trial patella was positioned, knee was taken through full range of motion with the patella tracking very nicely. The trial patella was removed. Drill holes were made through the femoral component. All trial components were removed after marking off the appropriate rotation of the tibia. Retractors were now positioned along the proximal tibia. An appropriate keel punch was made with the appropriate size tibial guide by myself on Fernando HOLDER assisted by holding retractors. At this point appropriate size implants were chosen and opened. The joint was irrigated copiously with pulse lavage mechanical irrigation. The wound was irrigated with pulse lavage mechanical irrigation. We mixed antibiotic methylmethacrylate. We placed the knee into flexion. We placed multiple retractors assisted by Fernando HOLDER to expose the proximal tibia. Once the methyl methacrylate was ready, the tibial component was cemented into place removing any excess methylmethacrylate form by both myself and Fernando HOLDER. The femoral component was cemented into place removing the removing any excess methylmethacrylate performed by both myself and Fernando HOLDER. We then inserted the appropriate size polyethylene tibial insert. We made sure that it was locked into position. We took the knee into full extension, and then back in a flexion making sure we had removed any excess methylmethacrylate. The patellar component was then cemented down and secured with clamp. Excess methylmethacrylate removed. We kept the knee in full extension, patellar clamp in position until methylmethacrylate had hardened. Once it had hardened the patellar clamp was removed. The knee was taken through full range of motion. The patella tracked nicely. There was good soft tissue balancing. The tourniquet was now released. Additional hemostasis was achieved via electrocautery. A second gram of TXA was given. The wound again was irrigated with pulse lavage mechanical irrigation. The extensor mechanism was repaired with Ethibond suture. We checked the repair with range of motion and it was stable. The subcutaneous soft tissues were repaired with Vicryl in layers. The skin was approximated with pernio/Dermabond. Sterile dressings were applied followed by loose web roll and Ralph bandage. The patient was transferred to a bed, and taken to recovery in stable and satisfactory condition. Fernando HOLDER assisted with this complex procedure.
[2023-12-18] MEDS: ROPIVACAINE 1,100 MG, SODIUM CHLORIDE 0.9% 500 ML 330 ML, EMPTY PAIN BALL 1 EACH MISCELLANE PRN (12:03)
--- NOTE | 2023-12-18 12:07 | XR ---
EXAMINATION TYPE: XR knee limited RT DATE OF EXAM: 12/18/2023 11:51 AM CLINICAL INDICATION:Male, 82 years old with history of Evaluation for Postop abnormality and alignmen t; [facility] COMPARISON: None. TECHNIQUE: XR knee limited RT; examined in Frontal, lateral and oblique projections. FINDINGS: Status post total knee arthroplasty changes with hardware in appropriate alignment and in tact. No evidence of fracture. Subcutaneous lucencies and lucencies within the joint consistent with surgical changes. IMPRESSION: Status post total knee arthroplasty changes with hardware intact and appropriate alignment. No fractu res identified.
[2023-12-18] MEDS: hydrALAZINE HCL 20 MG/ML 1 ML VIAL IVP ONE ×3 (13:06→13:56)
[2023-12-18] MEDS: LACTATED RINGERS 1,000 ML IV SCH (15:12)
[2023-12-18] MEDS: SODIUM CHLORIDE 0.9% 1,000 ML IV SCH (15:12)
[2023-12-18] MEDS: HYDROcodone/APAP 7.5-325MG 1 EACH TAB PO PRN (17:04)
--- NOTE | 2023-12-18 20:43 | P.CONS ---
History of Present Illness - Reason for Consult Consult date: 12/18/23 Medical management Requesting physician: Jamison Rios - Chief Complaint Right knee pain - History of Present Illness This is a pleasant 82-year-old patient who follows with Dr. Whitley. Chronic stable medical conditions include hypertension, hard of hearing, primary osteoarthritis in other joints. Patient has undergone right total knee arthroplasty. Ralph wrap in place. Some pain is present. No nausea vomiting. Denies any cardiac history. Reclining in bed. Review of systems: GEN.: Tired EYES: None HEENT: Hard of hearing NECK: None RESPIRATORY: None CARDIOVASCULAR: None GASTROINTESTINAL: None GENITOURINARY: None MUSCULOSKELETAL: Joint pains LYMPHATICS: None HEMATOLOGICAL: None PSYCHIATRY: None NEUROLOGICAL: None Social history: Lives alone. No smoking no alcohol. Used to work for [employer]. Physical examination: VITAL SIGNS: 97.7, 75, 19, 171 x 81, 97% room air GENERAL: BMI 32.8, reclining in bed awake not in distress. EYES: Pupils equal. Conjunctiva angela l. HEENT: External appearance of nose and ears normal, oral cavity grossly normal. NECK: JVD not raised; masses not palpable. HEART: First and second heart sounds are normal; no edema. LUNGS: Respiratory rate normal; clear to auscultation. ABDOMEN: Soft, nontender, liver spleen not palpable, no masses palpable. PSYCH: Alert and oriented x3; mood and affect angela l. MUSCULOSKELETAL:No Clubbing/cyanosis;muscles-grossly intact. Dressing over the right knee. Evidence of OA and other joints NEUROLOGICAL: Cranial nerves grossly intact; no facial asymmetry, power and sensation grossly intact. LYMPHATICS: No lymph nodes palpable in the axilla and neck INVESTIGATIONS, reviewed in the clinical context: December 01, 2023: White count 4.9 hemoglobin 12 platelets 208 potassium 4.1 creatinine 0.7 Assessment plan: -Right total knee arthroplasty Lovenox for DVT prophylaxis. Pain controlled. -Primary osteoarthritis Pain medications as needed -Chronic, hard of hearing -BPH Flomax 0.4 mg a day -Essential hypertension Toprol-XL, benazepril -Obesity BMI 32.8 Weight loss measures Care was discussed with the patient. Questions answered. Thank you Dr. Rios Past Medical History Past Medical History: Hearing Disorder / Deafness, Hypertension Additional Past Medical History / Comment(s): Bilateral hearing aids. History of Any Multi-Drug Resistant Organisms: None Reported Past Surgical History: Joint Replacement Additional Past Surgical History / Comment(s): Lens placed in right eye, total left knee arthroplasty. Past Anesthesia/Blood Transfusion Reactions: No Reported Reaction Additional Past Anesthesia/Blood Transfusion Reaction / Comm: Patient has never general anesthesia. Smoking Status: Never smoker - Past Family History Mother Family Medical History: No Reported History Medications and Allergies Home Medications Medication Instructions Recorded Confirmed Type Cholecalciferol [Vitamin D3 (25 50 mcg PO BID 05/11/23 12/18/23 History Mcg = 1000 Iu)] Metoprolol Succinate (ER) [Toprol 50 mg PO BID 05/11/23 12/18/23 History XL] Prevagen Extra Strength 1 tab PO DAILY 05/11/23 12/18/23 History Vit C/E/Zn/Coppr/Lutein/Zeaxan 1 each PO BID 05/11/23 12/18/23 History [Preservision Areds 2 Softgel] Vitamin B. 250 mg PO DAILY 05/11/23 12/18/23 History Tamsulosin HCl [Flomax] 0.4 mg PO DAILY #7 capsule 05/16/23 12/18/23 Rx Benazepril HCl 10 mg PO QAM 12/12/23 12/18/23 History Allergies Allergy/AdvReac Type Severity Reaction Status Date / Time No Known Allergies Allergy Verified 12/18/23 07:50 Physical Exam Vitals: Vital Signs Temp Pulse Pulse Resp BP BP Pulse Ox 12/18/23 14:37 97.7 F 19 171/81 97 12/18/23 14:12 75 16 150/74 95 12/18/23 13:45 63 16 173/80 96 12/18/23 13:29 63 16 162/79 95 12/18/23 13:14 54 L 16 165/71 94 L 12/18/23 12:44 52 L 16 168/77 95 12/18/23 12:29 55 L 12 169/74 95 12/18/23 12:14 54 L 14 169/73 95 12/18/23 11:59 53 L 12 172/90 95 12/18/23 11:44 61 12 163/78 99 12/18/23 11:29 98 F 64 16 143/71 98 12/18/23 08:36 78 16 168/83 100 12/18/23 08:02 98.7 F 90 16 187/83 95 Intake and Output 12/18/23 12/18/23 12/18/23 06:59 14:59 22:59 Intake Total 1301 Output Total 60 200 Balance 1241 -200 Intake: IV 1301 Output: Urine 200 Estimated Blood Loss 60 Other: # Voids 2 Weight 109.6 kg
[2023-12-18] MEDS ORDERED: ENOXAPARIN 30 MG/0.3 ML SYRINGE SQ SCH (21:00)
[2023-12-18] MEDS: CHOLECALCIFEROL 25 MCG (1000 IU) TABLET PO SCH (21:20)
[2023-12-18] MEDS: METOPROLOL SUCCINATE (ER) 50 MG TAB.ER.24H PO SCH (21:20)
[2023-12-18] MEDS: VIT A,C & E-LUTEIN-MINERALS 1 EACH TAB PO SCH (21:21)
[2023-12-18] MEDS: ZOLPIDEM 5 MG TAB PO STA (23:31)
[2023-12-18] MEDS: ENOXAPARIN 30 MG/0.3 ML SYRINGE SQ SCH (23:32)
[2023-12-18] MEDS: SENNOSIDES-DOCUSATE SODIUM 1 EACH TAB PO SCH (23:38)
[2023-12-19] MEDS: TAMSULOSIN 0.4 MG CAP.ER.24H PO SCH (08:13)
[2023-12-19] MEDS: lisinopriL 10 MG TAB PO SCH (08:13)
[2023-12-19] MEDS: CYANOCOBALAMIN 500 MCG TAB PO SCH (08:14)
[2023-12-19 08:45] LABS: Basophils # (A) 0.02 X 10*3/uL (0.00-0.10); Basophils % (A) 0.2 %; Eosinophils # (A) 0 X 10*3/uL (0.04-0.35); Eosinophils % (A) 0 %; HCT 32.8 % (39.6-50.0); HGB 10.8 g/dL (13.0-17.0); Lymphocytes # (A) 1.25 X 10*3/uL (0.90-5.00); Lymphocytes % (A) 11.8 %; MCH 30.7 pg (27.0-32.0); MCHC 32.9 g/dL (32.0-37.0); MCV 93.2 FL (80.0-97.0); Mean Platelet Volume 10.7 FL (9.5-12.2); Monocytes # (A) 1.11 X 10*3/uL (0.20-1.00); Monocytes % (A) 10.5 %; NRBC Per 100 WBC 0 X 10*3/uL (0.00-0.01); Neutrophils # (A) 8.13 X 10*3/uL (1.80-7.70); Neutrophils % (A) 77.1 %; Platelet Count 167 X 10*3/uL (140-440); RBC 3.52 X 10*6/uL (4.40-5.60); RDW 14.1 % (11.5-14.5); WBC 10.55 X 10*3/uL (4.50-10.00)
[2023-12-19] MEDS ORDERED: PREVAGEN EXTRA STRENGTH PO SCH (09:00)
--- NOTE | 2023-12-19 10:31 | P.PN ---
Progress Note - Text Progress Note Date: 12/19/23 patient was seen and evaluated at bedside. Status post postoperative day 1 for right side total knee arthroplasty patient had adductor canal catheter for postop pain control. Patient rated pain at rest 3-4 out of 10 in severity. Patient describes pain is aching, throbbing type on the sides of the knee and back of the knee. Patient started walking with support. With activity patient pain levels are 5-6 out of 10 in severity. With the help of oral pain medicati ons pain levels are tolerable. Patient denied any weakness/ numbness in lower extremities. patient denied any fever, pain over the catheter site. Physical exam: Patient vital signs stable Patient is alert awake oriented 3 responding to all questions appropriately Examination of the catheter site showed dressing intact, no leaking fluid around the catheter, no redness, no tenderness over the catheter insertion area. plan: status post postoperative day 1 for right side total knee arthroplasty with adductor canal catheter for pain control. Patient was discussed to continue the medication at the rate of 8 mL per hour until the pump is completely empty and instructed the patient how to discontinue the catheter.
[2023-12-19] MEDS: MULTIVITAMINS, THERA 1 EACH TAB PO SCH (11:55)
--- NOTE | 2023-12-19 12:37 | P.PN ---
Subjective Progress Note Date: 12/19/23 Principal diagnosis: Status post right total knee arthroplasty Patient was evaluated today at bedside, he is resting in his hospital bed. I did discuss with nursing and also reviewed physical therapy's note, patient did okay with therapy today. He was able to utilize the steps. He has been dealing with some excessive pain discomfort along with weakness in that extremity. Chetan arredondo has been urinating at this time with no difficulties. He denies headaches, lightheadedness, chest pain or shortness of breath Objective - Vital Signs Vital signs: Vital Signs Temp 98.1 F 12/19/23 07:23 Pulse 70 12/19/23 07:23 Resp 19 12/19/23 07:23 BP 165/80 12/19/23 11:29 Pulse Ox 96 12/19/23 07:23 FiO2 Intake & Output 12/18/23 12/19/23 12/19/23 18:59 06:59 18:59 Intake Total 1301 Output Total 260 650 100 Balance 1041 -650 -100 Weight 109.6 kg Intake: IV 1301 Output: Urine 200 650 100 Estimated Blood Loss 60 Other: # Voids 2 - Exam Right lower extremity: Incision is clean, dry, and intact. The foam dressing is in good condition. There is minimal soft tissue swelling and ecchymosis surrounding the medial and lateral aspects of the incision. Calf is soft, no tenderness with palpation. Plantar flexion, dorsiflexion, EHL, FHL are intact. Sensory exam to light touch throughout the extremity is intact, dorsal pedis pulses 2+. - Labs CBC & Chem 7: 12/19/23 06:04 Labs: Abnormal Lab Results - Last 24 Hours (Table) 12/19/23 Range/Units 06:04 WBC 10.55 H (4.50-10.00) X 10*3/uL RBC 3.52 L (4.40-5.60) X 10*6/uL Hgb 10.8 L (13.0-17.0) g/dL Hct 32.8 L (39.6-50.0) % Neutrophils # 8.13 H (1.80-7.70) X 10*3/uL Monocytes # 1.11 H (0.20-1.00) X 10*3/uL Eosinophils # 0 L (0.04-0.35) X 10*3/uL Assessment and Plan Assessment: Postoperative day #1 status post right total knee arthroplasty Plan: Pain control, continue with oral medications. IV pain medication is available for severe pain DVT prophylaxis, continue with current medication during hospital stay Continue to ice and elevate, discussed wound care instructions including showering Encourage incentive spirometer Weight-bear as tolerated, utilize walker Out of bed for all meals Medical recommendations appreciated Discharge planning: Would like to keep patient in hospital for an additional 24- 48 hours to work with physical therapy. Prefer patient to go home with home health care. Will reassess on 12/20/2023 Time with Patient: Less than 30
[2023-12-19] MEDS: SODIUM FERRIC GLUCONAT-SUCROSE 125 MG in SODIUM CHLORIDE 0.9% 100 ML IVPB SCH (14:58)
--- NOTE | 2023-12-19 18:48 | P.PN ---
Progress Note - Text Progress Note Date: 12/19/23 - Chief Complaint Right knee pain - History of Present Illness This is a pleasant 82-year-old patient who follows with Dr. Whitley. Chronic stable medical conditions include hypertension, hard of hearing, primary osteoarthritis in other joints. Patient has undergone right total knee arthroplasty. Ralph wrap in place. Some pain is present. No nausea vomiting. Denies any cardiac history. Reclining in bed. December 18: Patient work with therapy. Some trouble with steps. Per Ortho will be watched for 1 more day. Tolerated diet. No chest pain or shortness of breath. Making urine. Active Medications Hydrocodone Bitart/Acetaminophen (Hydrocodone/Apap 5-325mg 1 Each Tab) 1 each PO Q6HR PRN PRN Reason: Pain Scale 1 to 5 Stop: 01/17/24 11:13 Hydrocodone Bitart/Acetaminophen (Hydrocodone/Apap 7.5-325mg 1 Each Tab) 1 each PO Q6H PRN PRN Reason: Pain Scale 6 to 10 Stop: 01/17/24 11:13 Last Admin: 12/19/23 17:53 Dose: 1 each Cholecalciferol (Cholecalciferol 25 Mcg (1000 Iu) Tablet) 50 mcg PO BID [facility] Last Admin: 12/19/23 08:13 Dose: 50 mcg Ropivacaine 1,100 mg/ Sodium Chloride 330 ml/ Bandage/Support Products 1 each 0 mg MISCELLANE Q2H PRN PRN Reason: Breakthrough Pain Stop: 01/17/24 11:58 Last Admin: 12/18/23 12:03 Dose: 1,100 mg Cyanocobalamin (Cyanocobalamin 500 Mcg Tab) 500 mcg PO DAILY [facility] Last Admin: 12/19/23 08:14 Dose: 500 mcg Enoxaparin Sodium (Enoxaparin 30 Mg/0.3 Ml Syringe) 30 mg SQ Q12H [facility] Last Admin: 12/19/23 13:42 Dose: 30 mg Hydromorphone HCl (Hydromorphone 0.5 Mg/0.5 Ml Syringe) 0.25 mg IVP Q3HR PRN PRN Reason: Pain Scale 4 to 6 Stop: 01/17/24 11:13 Hydromorphone HCl (Hydromorphone 0.5 Mg/0.5 Ml Syringe) 0.5 mg IVP Q3HR PRN PRN Reason: Pain Scale 7 to 10 Stop: 01/17/24 11:13 Hydromorphone HCl (Hydromorphone 0.5 Mg/0.5 Ml Syringe) 0.125 mg IVP Q3HR PRN PRN Reason: Pain Scale 1 to 3 Stop: 01/17/24 11:13 Lactated Ringer's (Lactated Ringers) 1,000 mls @ 20 mls/hr IV .Q24H [facility] Stop: 01/17/24 07:50 Last Admin: 12/19/23 08:15 Dose: Not Given Sodium Chloride (Saline 0.9%) 1,000 mls @ 50 mls/hr IV .Q20H [facility] Stop: 01/17/24 11:16 Last Admin: 12/19/23 08:55 Dose: Not Given Ferric Sodium Gluconate 125 mg (/ Sodium Chloride) 110 mls @ 100 mls/hr IVPB DAILY [facility] Stop: 12/20/23 10:05 Last Admin: 12/19/23 14:58 Dose: 100 mls/hr Lidocaine HCl (Lidocaine 1% (10mg/Ml) For Iv Start) 0.1 ml INTRADERMA PER PROTOCOL PRN PRN Reason: IV Start Stop: 01/17/24 07:50 Lisinopril (Lisinopril 10 Mg Tab) 10 mg PO QAM [facility] Last Admin: 12/19/23 08:13 Dose: 10 mg Metoprolol Succinate (Metoprolol Succinate (Er) 50 Mg Tab.Er.24h) 50 mg PO BID [facility] Last Admin: 12/19/23 08:14 Dose: 50 mg Multivitamins (Multivitamins, Thera 1 Each Tab) 1 each PO DAILY@1200 [facility] Stop: 01/18/24 12:01 Last Admin: 12/19/23 11:55 Dose: 1 each Multivitamins/Minerals (Vit A,C & N-Mfsszx-Cdltfdcy 1 Each Tab) 1 each PO BID [facility] Last Admin: 12/19/23 08:14 Dose: 1 each Naloxone HCl (Naloxone 0.4 Mg/Ml 1 Ml Vial) 0.2 mg IV Q2M PRN PRN Reason: Opioid Reversal Stop: 01/17/24 11:13 Ondansetron HCl (Ondansetron 4 Mg/2 Ml Vial) 4 mg IVP Q8HR PRN PRN Reason: Nausea And Vomiting Stop: 01/17/24 11:13 Senna/Docusate Sodium (Sennosides-Docusate Sodium 1 Each Tab) 2 each PO HS [facility] Stop: 01/17/24 21:01 Last Admin: 12/18/23 23:38 Dose: Not Given Tamsulosin HCl (Tamsulosin 0.4 Mg Cap.Er.24h) 0.4 mg PO DAILY [facility] Last Admin: 12/19/23 08:13 Dose: 0.4 mg Social history: Lives alone. No smoking no alcohol. Used to work for [employer]. Physical examination: VITAL SIGNS: 98.1, 70, 19, 165 x 80, 96% room air GENERAL: Resting in bed, comfortable EYES: Pupils equal. Conjunctiva angela l. HEENT: External appearance of nose and ears normal, oral cavity grossly normal. NECK: JVD not raised; masses not palpable. HEART: First and second heart sounds are normal; no edema. LUNGS: Respiratory rate normal; clear to auscultation. ABDOMEN: Soft, nontender, liver spleen not palpable, no masses palpable. PSYCH: Alert and oriented x3; mood and affect angela l. MUSCULOSKELETAL:No Clubbing/cyanosis;muscles-grossly intact. Dressing over the right knee. Evidence of OA and other joints INVESTIGATIONS, reviewed in the clinical context: December 18: White count 10.5 hemoglobin 10.8 platelets 167 December 01, 2023: White count 4.9 hemoglobin 12 platelets 208 potassium 4.1 creatinine 0.7 Assessment plan: -Right total knee arthroplasty Lovenox for DVT prophylaxis. Pain controlled. -Primary osteoarthritis Pain medications as needed -Acute postprocedure blood loss anemia expected from surgery IV Ferrlecit. 2 doses Oral ferrous sulfate -Chronic, hard of hearing -BPH Flomax 0.4 mg a day -Essential hypertension Toprol-XL, benazepril -Obesity BMI 32.8 Weight loss measures -Mild leukocytosis likely reactive to surgery. No respiratory urinary symptoms. -DNR IV Ferrlecit. Oral sulfate. Other medications to continue. Discussed with patient Thank you Dr. Rios Past Medical History Past Medical History: Hearing Disorder / Deafness, Hypertension Additional Past Medical History / Comment(s): Bilateral hearing aids. History of Any Multi-Drug Resistant Organisms: None Reported Past Surgical History: Joint Replacement Additional Past Surgical History / Comment(s): Lens placed in right eye, total left knee arthroplasty. Past Anesthesia/Blood Transfusion Reactions: No Reported Reaction Additional Past Anesthesia/Blood Transfusion Reaction / Comm: Patient has never general anesthesia. Smoking Status: Never smoker
[2023-12-19] MEDS: FERROUS SULFATE 325 MG TAB PO SCH (20:32)
--- NOTE | 2023-12-20 10:58 | P.PN ---
Subjective Progress Note Date: 12/20/23 Principal diagnosis: Status post right total knee arthroplasty Patient was evaluated today at bedside, he is resting in his hospital chair. Patient continues to struggle with physical therapy, he was unable to do the stairs today. He is requiring quite a bit of assistance with transferring also. Patient has been urinating with no difficulties. He denies headaches, lighthea dedness, chest pain or shortness of breath Objective - Vital Signs Vital signs: Vital Signs Temp 98.5 F 12/20/23 07:25 Pulse 83 12/20/23 07:25 Resp 17 12/20/23 07:25 BP 174/85 12/20/23 07:25 Pulse Ox 97 12/20/23 07:25 FiO2 Intake & Output 12/19/23 12/20/23 12/20/23 18:59 06:59 18:59 Output Total 400 350 Balance -400 -350 Output: Urine 400 350 - Exam Right lower extremity: Incision is clean, dry, and intact. The foam dressing is in good condition. There is minimal soft tissue swelling and ecchymosis surrounding the medial and lateral aspects of the incision. Calf is soft, no tenderness with palpation. Plantar flexion, dorsiflexion, EHL, FHL are intact. Sensory exam to light touch throughout the extremity is intact, dorsal pedis pulses 2+. - Labs CBC & Chem 7: 12/19/23 06:04 Assessment and Plan Assessment: Postoperative day #2 status post right total knee arthroplasty Plan: Pain control, continue with oral medications. IV pain medication is available for severe pain DVT prophylaxis, continue with current medication during hospital stay Continue to ice and elevate, discussed wound care instructions including showering Encourage incentive spirometer Weight-bear as tolerated, utilize walker Out of bed for all meals Medical recommendations appreciated Discharge planning: After discussion with both nursing, physical therapy and case management we would like the patient to be set up for subacute rehab. Patient does live alone and has no help also, he also has a few stairs to get in his home. I feel that a short stay at subacute rehab would be ideal. Will continue to follow during hospital stay, hopeful discharge in the next 24-48 hours. Time with Patient: Less than 30
--- NOTE | 2023-12-20 13:12 | P.PN ---
Subjective Progress Note Date: 12/20/23 This is a pleasant 82-year-old patient who follows with Dr. Whitley. Chronic stable medical conditions include hypertension, hard of hearing, primary osteoarthritis in other joints. Patient has undergone right total knee arthroplasty. Ralph wrap in place. Some pain is present. No nausea vomiting. Denies any cardiac history. Reclining in bed. December 18: Patient work with therapy. Some trouble with steps. Per Ortho will be watched for 1 more day. Tolerated diet. No chest pain or shortness of breat h. Making urine. 12/19. Patient seen and examined. States right knee pain is slowly improving. PT and OT recommend rehab. REVIEW OF SYSTEMS: CONSTITUTIONAL: No fever, no malaise,. CARDIOVASCULAR: No chest pain, no palpitations, no syncope. PULMONARY: No shortness of breath, no cough, GASTROINTESTINAL: No diarrhea, no nausea, no vomiting, no abdominal pain. NEUROLOGICAL: No headaches, no weakness, PHYSICAL EXAMINATION: GENERAL: The patient is alert and oriented x3, not in any acute distress. Well developed, well nourished. HEENT: Pupils are round and equally reacting to light. EOMI. No scleral icterus. No conjunctival pallor. Normocephalic, atraumatic. No pharyngeal erythema. No thyromegaly. CARDIOVASCULAR: S1 and S2 present. No murmurs, rubs, or gallops. PULMONARY: Chest is clear to auscultation, no wheezing or crackles. ABDOMEN: Soft, nontender, nondistended, normoactive bowel sounds. No palpable organomegaly. MUSCULOSKELETAL: Right knee surgical incision seen EXTREMITIES: No cyanosis, clubbing, or pedal edema. NEUROLOGICAL: Gross neurological examination did not reveal any focal deficits. SKIN: No rashes. Assessment and plan -Right total knee arthroplasty Primary osteoarthritis Continue pain management per orthopedics Continue DVT prophylaxis per orthopedics Continue home meds PT and OT recommend rehab -Acute postprocedure blood loss anemia expected from surgery Monitor CBC -Chronic, hard of hearing -BPH Flomax 0.4 mg a day -Essential hypertension Toprol-XL, benazepril -Obesity BMI 32.8 Weight loss measures -Mild leukocytosis likely reactive to surgery. No respiratory urinary symptoms. -DNR Labs and medication were reviewed.. Continue same treatment. Continue with symptomatic treatment. Resume home medication. Monitor labs and vitals. DVT and GI prophylaxis. Further recommendations as per clinical course of the patient Dictation was produced using Wingu dictation software. please excuse any grammatical, word or spelling errors. Objective - Vital Signs Vital signs: Vital Signs Temp 98.5 F 12/20/23 07:25 Pulse 83 12/20/23 07:25 Resp 17 12/20/23 07:25 BP 174/85 12/20/23 07:25 Pulse Ox 97 12/20/23 07:25 FiO2 Intake & Output 12/19/23 12/20/23 12/20/23 18:59 06:59 18:59 Output Total 400 350 Balance -400 -350 Output: Urine 400 350 - Labs CBC & Chem 7: 12/19/23 06:04
[2023-12-21] MEDS: DOCUSATE 100 MG CAP PO SCH (09:21)
[2023-12-21 09:26] VITALS: BP 165/96; PULSE 94; RESP 17; TEMP 98.3
--- NOTE | 2023-12-21 10:04 | P.DS ---
Providers Date of admission: 12/20/23 10:58 Expected date of discharge: 12/21/23 Attending physician: Jamison Rios Consults: 12/18/23 11:12 Consult Physician Routine Consulting Provider: Mark Roe Consult Reason/Comments: Medical management Do you want consulting provider notified?: Yes [facility] Course: Date of admission: 12/18/2023 Date of discharge: 12/21/2023 Admission diagnosis: Right knee osteoarthritis Discharge diagnosis: Same Attending physician: Dr. Rios Surgical procedures: Right total knee arthroplasty Brief history: Patient is a 82-year-old male with a history of progressive primary right knee osteoarthritis. At this point patient has failed conserva tive treatment measures and has opted to proceed with a elective right total knee arthroplasty. Hospital course: Details of patient's surgery can be found in operative report. Patient tolerated the procedure well and was subsequently transported to orthopedic floor. Patient's orthopeidc and medical care was provided daily. Patient had daily laboratory tests performed for evaluation of overall blood counts. Patient had daily physical therapy to include strengthening range of motion as well as education with walker ambulation. Patient was treated with Lovenox for their postoperative DVT prophylaxis during their inpatient stay. Patient was noted to have a relatively uneventful postoperative course. Patient reported satisfactory pain control with oral pain medications by postoperative day 3. Patient showed satisfactory progress with physical therapy. Patient moved steadily through the program and had no difficulty meeting the goals by postoperative day 3. Given patient's otherwise satisfactory course and having met physical therapy goals, plan is to discharge patient to rehab on postoperative day 3. Discharge condition/disposition: Patient will be discharged to rehab in stable condition. Discharge medications: Instructions are given on resumption of patient's normal daily medications per primary care recommendation, in addition patient will be prescribed Victoria; senna; lovenox Discharge instructions: 1. Wound care and infection precautions, keep incision dry and covered while showering, no lotions, creams, moisturizers. No soaking, tubs, pools, hottubs. Do not scrub over the incision. 2. Weight-bear as tolerated with walker / cane until follow-up. 3. Ice and elevate when necessary. Do not exceed 20 minutes per hour with ice pack. 4. Utilize compression sleeve until seen at first follow up appointment. 5. Visiting nursing care. 6. Home physical therapy including home CPM. 7. Pain meds and anticoagulants per prescription. 8. Pain medication has potential to cause constipation. Increase oral fluid and fiber intake. Contact primary care provider if you have not had a bowel movement within 48 hours after discharge 9. No anti-inflammatory medication until discussed at first post operative visit, this including Motrin, Aleve, Mobic, Diclofenac, 10. Follow up in office at 2 weeks postop with Fernando Humphrey PA-C / Pillo Vallejo PA-C 11. Follow up with your primary care doctor 7-10 days after discharge. 12. Contact [facility] with any questions, . Assessment: Right knee osteoarthritis Procedures: Right total knee arthroplasty Patient Condition at Discharge: Good Plan - Discharge Summary Discharge Rx Participant: Yes New Discharge Prescriptions: New Ferrous Sulfate [Iron (65 MG Elemental)] 325 mg PO BID-W/MEALS #30 tab HYDROcodone/APAP 7.5-325MG [Victoria 7.5-325] 1 tab PO Q6HR PRN #24 tab PRN Reason: Pain Enoxaparin [Lovenox] 30 mg SQ DAILY #28 each Sennosides/Docusate Sodium [Senna Plus 8.6-50 mg Softgel] 1 each PO DAILY #20 capsule Continue Cholecalciferol [Vitamin D3 (25 Mcg = 1000 Iu)] 50 mcg PO BID Vitamin B. 250 mg PO DAILY Tamsulosin HCl [Flomax] 0.4 mg PO DAILY #7 capsule Metoprolol Succinate (ER) [Toprol XL] 50 mg PO BID Vit C/E/Zn/Coppr/Lutein/Zeaxan [Preservision Areds 2 Softgel] 1 each PO BID Prevagen Extra Strength 1 tab PO DAILY Benazepril HCl 10 mg PO QAM Discharge Medication List Cholecalciferol [Vitamin D3 (25 Mcg = 1000 Iu)] 50 mcg PO BID 05/11/23 [History] Metoprolol Succinate (ER) [Toprol XL] 50 mg PO BID 05/11/23 [History] Prevagen Extra Strength 1 tab PO DAILY 05/11/23 [History] Vit C/E/Zn/Coppr/Lutein/Zeaxan [Preservision Areds 2 Softgel] 1 each PO BID 05/11/23 [History] Vitamin B. 250 mg PO DAILY 05/11/23 [History] Tamsulosin HCl [Flomax] 0.4 mg PO DAILY #7 capsule 05/16/23 [Rx] Benazepril HCl 10 mg PO QAM 12/12/23 [History] Ferrous Sulfate [Iron (65 MG Elemental)] 325 mg PO BID-W/MEALS #30 tab 12/20/23 [Rx] Enoxaparin [Lovenox] 30 mg SQ DAILY #28 each 12/21/23 [Rx] HYDROcodone/APAP 7.5-325MG [Victoria 7.5-325] 1 tab PO Q6HR PRN #24 tab 12/21/23 [Rx] Sennosides/Docusate Sodium [Senna Plus 8.6-50 mg Softgel] 1 each PO DAILY #20 capsule 12/21/23 [Rx] Follow up Appointment(s)/Referral(s): [facility],Equipment [NON-STAFF] - 1 Week (Call [facility] when you get home and they will deliver your CPM) Sam Humphrey, PAC [PHYSICIAN MARINE BIOLOGIST] - 01/02/24 10:30 am Patient Instructions/Handouts: Knee Replacement (DC), Knee Replacement (GEN) Activity/Diet/Wound Care/Special Instructions: Orthopedic Discharge Instructions: 1. Wound care and infection precautions, keep incision dry and covered while showering, no lotions, creams, moisturizers. No soaking, pools, hot tubs. Do not scrub over incision. 2. Weight-bear as tolerated with walker / cane until follow-up. 3. Ice and elevate when necessary. Do not exceed 20 minutes per hour with ice pack. 4. Utilize compression sleeve until seen at first follow up appointment. 5. Pain meds and anticoagulants per prescription. 6. Pain medication has potential to cause constipation. Increase oral fluid and fiber intake. Contact primary care provider if you have not had a bowel movement within 48 hours after discharge. 7. No anti-inflammatory medication until discussed at first post operative visit, this including Motrin, Aleve, Mobic, Diclofenac. 8. Follow up in office at 2 weeks postop with Fernando Humphrey PA-C / Pillo Vallejo PA-C 9. Follow up with your primary care doctor 7-10 days after discharge. 10. Contact [facility] with any questions, . Keep incision clean, dry, intact. While showering, cover dressing with Saran wrap. Keep dressing on until 12/25/2023. Once dressing is removed on 12/25/2023, it is okay to shower directly over incision Discharge Disposition: TRANSFER TO SNF/ECF
--- NOTE | 2023-12-21 11:23 | P.PN ---
Subjective Progress Note Date: 12/21/23 Principal diagnosis: Right knee osteoarthritis Patient was seen at bedside this morning sitting up in chair with legs elevated and icing the right knee. Dressing is present over the right anterior knee. Patient says he is doing better today than he was the first couple days after surgery. Patient says he is looking forward to going to rehab today. Patient says medication is helping somewhat with his pain. Patient says he does get increased pain when he bears weight to the right lower extremity. Patient says he has urinated daily since surgery without issue. Patient says he has been passing gas, but no bowel movement yet. Patient denies chest pain, fever, chest breath, nausea, vomiting, change in vision, loss of bowel/bladder control. Objective - Vital Signs Vital signs: Vital Signs Temp 98.3 F 12/21/23 07:10 Pulse 94 12/21/23 07:10 Resp 17 12/21/23 07:10 BP 165/96 12/21/23 07:10 Pulse Ox 96 12/21/23 07:10 FiO2 Intake & Output 12/20/23 12/21/23 12/21/23 18:59 06:59 18:59 Output Total 400 500 Balance -400 -500 Output: Urine 400 500 Other: # Voids 2 - Exam Right knee: Incision is clean, dry, and intact. The silver foam dressing is in good condition. There is minimal soft tissue swelling and ecchymosis surrounding the medial and lateral aspects of the incision. Calf is soft, no tenderness with palpation. Plantar flexion, dorsiflexion, EHL, FHL are intact. Sensory exam to light touch throughout the extremity is intact, dorsal pedis pulses 2+. - Labs CBC & Chem 7: 12/19/23 06:04 Assessment and Plan Assessment: 1. Right knee osteoarthritis - Postoperative day 1 status post right total knee arthroplasty Plan: 1. Right knee osteoarthritis - right total knee arthroplasty performed 12/18/2023. Patient stable at bedside this morning. auth obtained for discharge today. Discharge to rehab today. 2. Appreciate medical management 3. Pain management - [place] 4. GI prophylaxis - senna 5. DVT prophylaxis - Lovenox 6. PT/OT - weightbearing as tolerated with walker and assistance as needed 7. Encourage incentive spirometer use 8. Discharge planning - discharge to rehab today Time with Patient: Less than 30
[2023-12-21 11:31] LABS: Basophils # (A) 0.05 X 10*3/uL (0.00-0.10); Basophils % (A) 0.7 %; Eosinophils # (A) 0.12 X 10*3/uL (0.04-0.35); Eosinophils % (A) 1.6 %; HCT 30.6 % (39.6-50.0); HGB 9.9 g/dL (13.0-17.0); Lymphocytes # (A) 0.96 X 10*3/uL (0.90-5.00); Lymphocytes % (A) 12.9 %; MCH 29.6 pg (27.0-32.0); MCHC 32.4 g/dL (32.0-37.0); MCV 91.6 FL (80.0-97.0); Mean Platelet Volume 10.6 FL (9.5-12.2); Monocytes # (A) 1.05 X 10*3/uL (0.20-1.00); Monocytes % (A) 14.2 %; NRBC Per 100 WBC 0 X 10*3/uL (0.00-0.01); Neutrophils # (A) 5.21 X 10*3/uL (1.80-7.70); Neutrophils % (A) 70.2 %; Platelet Count 146 X 10*3/uL (140-440); RBC 3.34 X 10*6/uL (4.40-5.60); RDW 14.4 % (11.5-14.5); WBC 7.42 X 10*3/uL (4.50-10.00)
--- NOTE | 2023-12-21 13:20 | P.PN ---
Subjective Progress Note Date: 12/21/23 This is a pleasant 82-year-old patient who follows with Dr. Whitley. Chronic stable medical conditions include hypertension, hard of hearing, primary osteoarthritis in other joints. Patient has undergone right total knee arthroplasty. Ralph wrap in place. Some pain is present. No nausea vomiting. Denies any cardiac history. Reclining in bed. December 18: Patient work with therapy. Some trouble with steps. Per Ortho will be watched for 1 more day. Tolerated diet. No chest pain or shortness of breat h. Making urine. 12/19. Patient seen and examined. States right knee pain is slowly improving. PT and OT recommend rehab. 12/20. Patient seen and examined. Patient is medically stable for discharge to rehab facility REVIEW OF SYSTEMS: CONSTITUTIONAL: No fever, no malaise,. CARDIOVASCULAR: No chest pain, no palpitations, no syncope. PULMONARY: No shortness of breath, no cough, GASTROINTESTINAL: No diarrhea, no nausea, no vomiting, no abdominal pain. NEUROLOGICAL: No headaches, no weakness, PHYSICAL EXAMINATION: GENERAL: The patient is alert and oriented x3, not in any acute distress. Well developed, well nourished. HEENT: Pupils are round and equally reacting to light. EOMI. No scleral icterus. No conjunctival pallor. Normocephalic, atraumatic. No pharyngeal erythema. No th yromegaly. CARDIOVASCULAR: S1 and S2 present. No murmurs, rubs, or gallops. PULMONARY: Chest is clear to auscultation, no wheezing or crackles. ABDOMEN: Soft, nontender, nondistended, normoactive bowel sounds. No palpable organomegaly. MUSCULOSKELETAL: Right knee surgical incision seen EXTREMITIES: No cyanosis, clubbing, or pedal edema. NEUROLOGICAL: Gross neurological examination did not reveal any focal deficits. SKIN: No rashes. Assessment and plan Right total knee arthroplasty Primary osteoarthritis Continue pain management per orthopedics Continue DVT prophylaxis per orthopedics Continue home meds PT and OT recommend rehab -Acute postprocedure blood loss anemia expected from surgery Monitor CBC -Chronic, hard of hearing -BPH Flomax 0.4 mg a day -Essential hypertension Toprol-XL, benazepril -Obesity BMI 32.8 Weight loss measures -Mild leukocytosis likely reactive to surgery. No respiratory urinary symptoms. -DNR Labs and medication were reviewed.. Continue same treatment. Continue with symptomatic treatment. Resume home medication. Monitor labs and vitals. DVT and GI prophylaxis. Further recommendations as per clinical course of the patient Dictation was produced using [email or web address] dictation software. please excuse any grammatical, word or spelling errors. Objective - Vital Signs Vital signs: Vital Signs Temp 98.3 F 12/21/23 07:10 Pulse 94 12/21/23 07:10 Resp 17 12/21/23 07:10 BP 165/96 12/21/23 07:10 Pulse Ox 96 12/21/23 07:10 FiO2 Intake & Output 12/20/23 12/21/23 12/21/23 18:59 06:59 18:59 Output Total 400 500 300 Balance -400 -500 -300 Output: Urine 400 500 300 Other: # Voids 2 - Labs CBC & Chem 7: 12/19/23 06:04
== END 2023-12-21 12:32 | DRG 470 ==
LOC: OR 06:55 → 4SSUR 13:33 → OR 12-20 10:58
PROVIDERS: ADMIT Orthopaedic Surgery; ATTEND Orthopaedic Surgery
PROC: 0SRC0J9 Replacement of Right Knee Joint with Synthetic Substitute, Cemented, Open Approach (ICD-10-PCS; principal; 2023-12-20)
PROC: 3E0T3BZ Introduction of Anesthetic Agent into Peripheral Nerves and Plexi, Percutaneous Approach (ICD-10-PCS; 2023-12-20)
DX: M17.11 Unilateral primary osteoarthritis, right knee (principal); D62 Acute posthemorrhagic anemia; D72.829 Elevated white blood cell count, unspecified; Z66 Do not resuscitate; E66.9 Obesity, unspecified; H91.90 Unspecified hearing loss, unspecified ear; I10 Essential (primary) hypertension; N40.0 Benign prostatic hyperplasia without lower urinary tract symptoms; Z68.32 Body mass index [BMI] 32.0-32.9, adult; Z79.899 Other long term (current) drug therapy; Z96.652 Presence of left artificial knee joint; Z97.4 Presence of external hearing-aid
CPT/HCPCS: 64448; 64999; 85025

== ENCOUNTER 2024-02-23 09:19 | Observation (INO) | payer MEDICARE ==
[2024-02-23] MEDS: ASPIRIN 81 MG PO STA (09:37)
--- NOTE | 2024-02-23 09:38 | ED ---
General Adult HPI - General Chief complaint: Chest Pain Stated complaint: chest pain Time Seen by Provider: 02/23/24 09:24 Source: patient, EMS, RN notes reviewed Mode of arrival: EMS Limitations: no limitations - History of Present Illness Initial comments: Patient is a 83-year-old male present to the emergency department with concerns for chest discomfort. Onset of symptoms was this morning. Discomfort felt like tightness and was mild. Symptoms resolved with 1 nitroglycerin by EMS. No history of similar symptoms previously. Patient is currently symptom-free. No associated dyspnea, nausea, or diaphoresis. Patient did have right knee surgery 2 months ago - Related Data Home Medications Medication Instructions Recorded Confirmed Cholecalciferol [Vitamin D3 (25 50 mcg PO BID 05/11/23 02/23/24 Mcg = 1000 Iu)] Metoprolol Succinate (ER) [Toprol 50 mg PO BID 05/11/23 02/23/24 XL] Prevagen Extra Strength 1 tab PO DAILY 05/11/23 02/23/24 Vit C/E/Zn/Coppr/Lutein/Zeaxan 1 cap PO BID 05/11/23 02/23/24 [Preservision Areds 2 Softgel] Ascorbic Acid [Vitamin C] 1,000 mg PO DAILY 02/23/24 02/23/24 Benazepril HCl [Lotensin] 20 mg PO DAILY 02/23/24 02/23/24 Previous Rx's Medication Instructions Recorded HYDROcodone/APAP 7.5-325MG [[place] 1 tab PO Q6HR PRN #24 tab 12/21/23 7.5-325] Allergies Allergy/AdvReac Type Severity Reaction Status Date / Time No Known Allergies Allergy Verified 02/23/24 10:13 Review of Systems ROS Statement: Those systems with pertinent positive or pertinent negative responses have been documented in the HPI. ROS Other: All systems not noted in ROS Statement are negative. Constitutional: Denies: fever Eyes: Denies: eye pain ENT: Denies: ear pain Respiratory: Denies: dyspnea Cardiovascular: Reports: as per HPI, chest pain Endocrine: Denies: fatigue Gastrointestinal: Denies: abdominal pain Neurological: Denies: weakness Past Medical History Past Medical History: No Reported History Additional Past Medical History / Comment(s): Bilateral hearing aids. History of Any Multi-Drug Resistant Organisms: None Reported Past Surgical History: Joint Replacement Additional Past Surgical History / Comment(s): Lens placed in right eye. Left Total knee arthroplasty 05/2023, total R knee 12/2023 Past Anesthesia/Blood Transfusion Reactions: No Reported Reaction Additional Past Anesthesia/Blood Transfusion Reaction / Comment(s): Patient has never general anesthesia. Past Psychological History: Anxiety Smoking Status: Never smoker - Past Family History Mother Family Medical History: No Reported History General Exam Limitations: no limitations General appearance: alert, in no apparent distress Head exam: Present: normocephalic Eye exam: Present: normal appearance Respiratory exam: Present: normal lung sounds bilaterally Cardiovascular Exam: Present: regular rate, irregular rhythm Expanded Peripheral pulses: 2+: Radial (R), Radial (L), Dorsalis Pedis (R), Dorsalis Pedis (L) GI/Abdominal exam: Present: soft. Absent: tenderness Extremities exam: Present: pedal edema (+1 bilateral). Absent: calf tenderness Neurological exam: Present: alert Psychiatric exam: Present: normal affect, normal mood Skin exam: Present: normal color, other (Healing incision right anterior knee) Course Vital Signs 02/23/24 02/23/24 02/23/24 09:22 09:30 10:00 Temperature 98.6 F Pulse Rate 89 90 92 Respiratory 18 17 22 Rate Blood Pressure 152/98 152/98 160/92 O2 Sat by Pulse 97 95 96 Oximetry EKG Findings - EKG Results: EKG: interpreted by [facility]AD (Left axis. Right bundle branch block.), normal ST/T EKG shows: atrial fibrillation Medical Decision Making - Medical Decision Making Was pt. sent in by a medical professional or institution (, PA, BRUSH SANDER, urgent care, hospital, or usp...) When possible be specific @ -No Did you speak to anyone other than the patient for history (EMS, parent, family, police, friend...)? What history was obtained from this source @ -No Did you review nursing and triage notes (agree or disagree)? Why? @ -I reviewed and agree with nursing and triage notes Were old charts reviewed (outside hosp., previous admission, EMS record, old EKG, old radiological studies, urgent care reports/EKG's, usp records)? Report findings @ -No old charts were reviewed Differential Diagnosis (chest pain, altered mental status, abdominal pain women, abdominal pain men, vaginal bleeding, weakness, fever, dyspnea, syncope, headache, dizziness, GI bleed, back pain, seizure, CVA, palpatations, mental health, musculoskeletal)? @ -Differential Chest Pain: Stable Angina, Unstable Angina, STEMI, NSTEMI Aortic Dissection, Pneumothorax, Musculoskeletal, Esophageal Spasm GERD, Cholecystitis, Pancreatitis, Zoster, this is not meant to be an all-inclusive list. EKG interpreted by me (3pts min.). @ -As above X-rays interpreted by me (1pt min.). @ -None done CT interpreted by me (1pt min.). @ -CT scan of the chest shows no evidence of pulmonary embolism U/S interpreted by me (1pt. min.). @ -None done What testing was considered but not performed or refused? (CT, X-rays, U/S, labs)? Why? @ -Consider chest x-ray however with elevated D-dimer CT scan was more appropriate What meds were considered but not given or refused? Why? @ -None Did you discuss the management of the patient with other professionals (professionals i.e. , PA, BRUSH SANDER, lab, RT, psych nurse, social worker masters, leveler, teacher, light armored vehicle officer, casework manager)? Give summary @ -Case was discussed with Dr. Roe will admit covering Dr. Gutierrez Was smoking cessation discussed for >3mins.? @ -No Was critical care preformed (if so, how long)? @ -No Were there social determinants of health that impacted care today? How? (Homelessness, low income, unemployed, alcoholism, drug addiction, transportation, low edu. Level, literacy, decrease access to med. care, senior living, rehab)? @ -No Was there de-escalation of care discussed even if they declined (Discuss DNR or withdrawal of care, Hospice)? DNR status @ -No What co-morbidities impacted this encounter? (DM, HTN, Smoking, COPD, CAD, Cancer, CVA, ARF, Chemo, Hep., AIDS, mental health diagnosis, sleep apnea, morbid obesity)? @ -History of atrial fibrillation Was patient admitted / discharged? Hospital course, mention meds given and route, prescriptions, significant lab abnormalities, going to OR and other pertinent info. @ -Patient reevaluated and remains symptom-free. Patient is updated on results and plan. Patient will be admitted. Admission orders written. Cardiac consult placed Undiagnosed new problem with uncertain prognosis? @ -No Drug Therapy requiring intensive monitoring for toxicity (Heparin, Nitro, Ins ulin, Cardizem)? @ -No Were any procedures done? @ -No Diagnosis/symptom? @ -Chest pain Acute, or Chronic, or Acute on Chronic? @ -Acute Uncomplicated (without systemic symptoms) or Complicated (systemic symptoms)? @ -Default Side effects of treatment? @ -No Exacerbation, Progression, or Severe Exacerbation? @ -No Poses a threat to life or bodily function? How? (Chest pain, [place], SD, pneumonia, PE, COPD, DKA, ARF, appy, cholecystitis, CVA, Diverticulitis, Homicidal, Suicidal, threat to staff... and all critical care pts) @ -Potential threat to cardiac function - Lab Data Result diagrams: 02/23/24 09:35 02/23/24 09:35 Lab Results 02/23/24 02/23/24 02/23/24 Range/Units 09:35 09:35 09:35 WBC 5.9 (3.8-10.6) k/uL RBC 4.15 L (4.30-5.90) m/uL Hgb 12.3 L (13.0-17.5) gm/dL Hct 38.3 L (39.0-53.0) % MCV 92.4 (80.0-100.0) fL MCH 29.7 (25.0-35.0) pg MCHC 32.1 (31.0-37.0) g/dL RDW 13.6 (11.5-15.5) % Plt Count 196 (150-450) k/uL MPV 7.5 Neutrophils % 65 % Lymphocytes % 21 % Monocytes % 7 % Eosinophils % 4 % Basophils % 1 % Neutrophils # 3.8 (1.3-7.7) k/uL Lymphocytes # 1.3 (1.0-4.8) k/uL Monocytes # 0.4 (0-1.0) k/uL Eosinophils # 0.2 (0-0.7) k/uL Basophils # 0.0 (0-0.2) k/uL PT 10.6 (10.0-12.5) sec INR 1.0 (<1.2) APTT 23.4 (22.0-30.0) sec D-Dimer 2.84 H (<0.60) mg/L FEU Sodium 139 (137-145) mmol/L Potassium 4.0 (3.5-5.1) mmol/L Chloride 108 H (98-107) mmol/L Carbon Dioxide 25 (22-30) mmol/L Anion Gap 6 mmol/L BUN 21 H (9-20) mg/dL Creatinine 0.62 L (0.66-1.25) mg/dL Est GFR (CKD-EPI)AfAm >90 (>60 ml/min/1.73 sqM) Est GFR (CKD-EPI)NonAf >90 (>60 ml/min/1.73 sqM) Glucose 100 H (74-99) mg/dL Calcium 9.1 (8.4-10.2) mg/dL Magnesium 2.1 (1.6-2.3) mg/dL Total Bilirubin 0.5 (0.2-1.3) mg/dL AST 25 (17-59) U/L ALT 14 (4-49) U/L Alkaline Phosphatase 75 (38-126) U/L Troponin I (0.000-0.034) ng/mL Total Protein 7.1 (6.3-8.2) g/dL Albumin 3.9 (3.5-5.0) g/dL 02/23/24 Range/Units 09:35 WBC (3.8-10.6) k/uL RBC (4.30-5.90) m/uL Hgb (13.0-17.5) gm/dL Hct (39.0-53.0) % MCV (80.0-100.0) fL MCH (25.0-35.0) pg MCHC (31.0-37.0) g/dL RDW (11.5-15.5) % Plt Count (150-450) k/uL MPV Neutrophils % % Lymphocytes % % Monocytes % % Eosinophils % % Basophils % % Neutrophils # (1.3-7.7) k/uL Lymphocytes # (1.0-4.8) k/uL Monocytes # (0-1.0) k/uL Eosinophils # (0-0.7) k/uL Basophils # (0-0.2) k/uL PT (10.0-12.5) sec INR (<1.2) APTT (22.0-30.0) sec D-Dimer (<0.60) mg/L FEU Sodium (137-145) mmol/L Potassium (3.5-5.1) mmol/L Chloride (98-107) mmol/L Carbon Dioxide (22-30) mmol/L Anion Gap mmol/L BUN (9-20) mg/dL Creatinine (0.66-1.25) mg/dL Est GFR (CKD-EPI)AfAm (>60 ml/min/1.73 sqM) Est GFR (CKD-EPI)NonAf (>60 ml/min/1.73 sqM) Glucose (74-99) mg/dL Calcium (8.4-10.2) mg/dL Magnesium (1.6-2.3) mg/dL Total Bilirubin (0.2-1.3) mg/dL AST (17-59) U/L ALT (4-49) U/L Alkaline Phosphatase (38-126) U/L Troponin I <0.012 (0.000-0.034) ng/mL Total Protein (6.3-8.2) g/dL Albumin (3.5-5.0) g/dL Disposition Clinical Impression: Chest pain Disposition: ADMITTED IP TO THIS HOSP Is patient prescribed a controlled substance at d/c from ED?: No Referrals: George Whitley MD [Primary Care Provider] - 1-2 days Time of Disposition: 11:18
[2024-02-23] MEDS: NITROGLYCERIN OINT 1 INCH/GM PACKET TOPICAL STA (09:42)
[2024-02-23 09:51] LABS: Basophils % (A) 1 %; Eosinophils # (A) 0.2 k/uL (0-0.7); Eosinophils % (A) 4 %; HCT 38.3 % (39.0-53.0); HGB 12.3 gm/dL (13.0-17.5); Lymphocytes # (A) 1.3 k/uL (1.0-4.8); Lymphocytes % (A) 21 %; MCH 29.7 pg (25.0-35.0); MCHC 32.1 g/dL (31.0-37.0); MCV 92.4 fL (80.0-100.0); Mean Platelet Volume 7.5; Monocytes # (A) 0.4 k/uL (0-1.0); Monocytes % (A) 7 %; Neutrophils # (A) 3.8 k/uL (1.3-7.7); Neutrophils % (A) 65 %; Platelet Count 196 k/uL (150-450); RBC 4.15 m/uL (4.30-5.90); RDW 13.6 % (11.5-15.5); WBC 5.9 k/uL (3.8-10.6)
[2024-02-23 10:06] LABS: Partial Thromboplastin Time 23.4 sec (22.0-30.0); Prothrombin Time 10.6 sec (10.0-12.5)
[2024-02-23 10:12] LABS: ALT 14 U/L (4-49); AST 25 U/L (17-59); African American GFR (CKD) >90 (>60 ml/min/1.73 sqM); Albumin 3.9 g/dL (3.5-5.0); Alkaline Phosphatase 75 U/L (38-126); Anion Gap 6 mmol/L; Blood Urea Nitrogen 21 mg/dL (9-20); Calcium 9.1 mg/dL (8.4-10.2); Carbon Dioxide 25 mmol/L (22-30); Chloride 108 mmol/L (98-107); Glucose 100 mg/dL (74-99); Magnesium 2.1 mg/dL (1.6-2.3); Non-African American GFR(CKD) >90 (>60 ml/min/1.73 sqM); Sodium 139 mmol/L (137-145); Total Bilirubin 0.5 mg/dL (0.2-1.3); Total Protein 7.1 g/dL (6.3-8.2)
--- NOTE | 2024-02-23 10:41 | CT ---
EXAMINATION TYPE: CT angio chest DATE OF EXAM: 02/23/2024 COMPARISON: None HISTORY: chest pain and elevated d-dimer. CT DLP: 434.9 mGycm CONTRAST: CT chest with contrast and 3D reconstruction with MIP imaging is performed with IV Contrast, patient injected with 100ml mL of Isovue 370. Contrast-enhanced CT of the chest was performed through the course of the pulmonary arteries with martha g and mediastinal window settings submitted. 3D reconstruction with MIP imaging was also performed. PULMONARY ARTERIES: The pulmonary arteries and their major tributaries are patent. I do not see porter dence for sizable filling defect to suggest pulmonary embolic process. LUNGS: The lungs are clear and free of infiltrate. Chronic elevation left hemidiaphragm with some bas ilar parenchymal scarring or atelectasis. 5 mm pleural-based nodule right lower lobe posteriorly imag e 134. Annual follow-up recommended. No pleural effusion. MEDIASTINUM: Thoracic aorta is of normal caliber. The heart is mildly enlarged. No evidence for med iastinal mass. No mediastinal lymph nodes greater than 1cm. HILAR STRUCTURES: No evidence for mass. No hilar lymph nodes greater than 1 cm. UPPER ABDOMEN: No significant abnormality is seen. IMPRESSION: 1. No evidence for Pulmonary embolism at this time.
[2024-02-23] MEDS ORDERED: HYDROcodone/APAP 7.5-325MG 1 EACH TAB PO PRN (11:16)
[2024-02-23] MEDS ORDERED: NITROGLYCERIN SL TABS 0.4 MG TAB SUBLINGUAL PRN (11:18)
[2024-02-23] MEDS ORDERED: LACTULOSE 20 GM/30 ML CUP PO PRN (12:38)
[2024-02-23] MEDS ORDERED: CALCIUM CARBONATE 500 MG CHEWABLE PO PRN (12:38)
[2024-02-23] MEDS ORDERED: NALOXONE 0.4 MG/ML 1 ML VIAL IV PRN (12:38)
[2024-02-23] MEDS ORDERED: ALPRAZolam 0.25 MG TAB PO PRN (12:38)
[2024-02-23] MEDS ORDERED: ACETAMINOPHEN TAB 325 MG TAB PO PRN (12:38)
[2024-02-23] MEDS ORDERED: ONDANSETRON 4 MG/2 ML VIAL IVP PRN (12:38)
[2024-02-23] MEDS ORDERED: MELATONIN 3 MG TABLET PO PRN (12:38)
[2024-02-23] MEDS ORDERED: HEPARIN SODIUM 1,000 UN/ML (10ML VL) IV PRN (12:53)
--- NOTE | 2024-02-23 12:59 | P.CRDCN ---
History of Present Illness Consult date: 02/23/24 Consult reason: chest pain History of present illness: History of present illness: This is an 83-year-old male with past medical history of hypertension, recent right knee surgery in November. Patient states he does not have any history of coronary artery disease and does not follow with a product picker. We have been asked to evaluate the patient for chest pain. Patient states that he developed chest pain that he is never had before. He denied having any shortness of breath and no dyspnea on exertion. His activity is limited due to recent right knee surgery. He states he had onset of chest pain while he was watching TV. The pain lasted until he got into the truck and gradually went away on his way here. He denies any dizziness no palpitations no syncopal episodes. No PND. No cough or fever. No wheezing. No blood in his stools or urine. He denies history of CVA or seizure. He does have history of smoking and quit many years ago. Patient is seen today in the emergency center waiting for a bed on the observation unit. EKG atrial fibrillation with right bundle branch block. Previous EKGs reviewed and more sinus rhythm. CTA of the chest negative for pulmonary embolism. Laboratory studies: Hemoglobin 12.3. D-dimer 2.84. Sodium 139, potassium 4, BUN 21 creatinine 0.62. Troponin negative x 1. Home cardiac medications: Benazepril 20 mg daily, Toprol XL 50 mg twice daily. Review Of Systems: At the time of my exam: CONSTITUTIONAL: Denies fever or chills. HEENT: Denies blurred vision, vision changes, or eye pain. Denies hemoptysis CARDIOVASCULAR: Denies chest pain. Denies orthopnea. Denies PND. Denies palpitations RESPIRATORY: Denies shortness of breath. GASTROINTESTINAL: Denies abdominal pain. Denies nausea or vomiting. HEMATOLOGIC: Denies bleeding disorders. GENITOURINARY: Denies any blood in urine. SKIN: Denies pruitis. Denies rash. Physical examination: Gen: This is an 83-year-old male in no acute distress VS: reviewed HEENT: Head is atraumatic, normocephalic. Pupils equal, round. Sclerae is anicteric. NECK: Supple. No JVD. LUNGS: Clear to auscultation. No wheezes or rhonchi. No intercostal retractions. HEART: Regular rate and rhythm. No murmur. ABDOMEN: Soft No tenderness. EXTREMITIES: No pedal edema. No calf tenderness. NEUROLOGICAL: Patient is awake, alert and oriented x3. Assessment: Chest pain, rule out non-ST [place] Hypertension Remote history of tobacco use Recent right knee surgery Plan: Resume patient's home cardiac medications Discontinue Nitropaste Start patient on aspirin 81 mg daily, atorvastatin 40 mg at bedtime Start patient on heparin drip Obtain repeat troponins Obtain lipid panel Obtain TSH and free T4 Obtain 2-D echocardiogram and Doppler study to assess cardiac structure and function If echocardiogram, enzymes are unremarkable and patient has no further episodes of chest pain, plan will be for outpatient stress testing. If patient develops more chest pain or troponins come back abnormal, patient will be scheduled for cardiac catheterization. Further recommendations to follow based upon clinical course Thank you kindly for this consultation. Nurse practitioner note has been reviewed, I agree with documented findings and plan of care. Patient was seen and examined. Past Medical History Past Medical History: No Reported History Additional Past Medical History / Comment(s): Bilateral hearing aids. History of Any Multi-Drug Resistant Organisms: None Reported Past Surgical History: Joint Replacement Additional Past Surgical History / Comment(s): Lens placed in right eye. Left Total knee arthroplasty 05/2023, total R knee 12/2023 Past Anesthesia/Blood Transfusion Reactions: No Reported Reaction Additional Past Anesthesia/Blood Transfusion Reaction / Comment(s): Patient has never general anesthesia. Past Psychological History: Anxiety Smoking Status: Never smoker - Past Family History Mother Family Medical History: No Reported History Medications and Allergies Home Medications Medication Instructions Recorded Confirmed Type Cholecalciferol [Vitamin D3 (25 50 mcg PO BID 05/11/23 02/23/24 History Mcg = 1000 Iu)] Metoprolol Succinate (ER) [Toprol 50 mg PO BID 05/11/23 02/23/24 History XL] Prevagen Extra Strength 1 tab PO DAILY 05/11/23 02/23/24 History Vit C/E/Zn/Coppr/Lutein/Zeaxan 1 cap PO BID 05/11/23 02/23/24 History [Preservision Areds 2 Softgel] HYDROcodone/APAP 7.5-325MG [[place] 1 tab PO Q6HR PRN #24 tab 12/21/23 02/23/24 Rx 7.5-325] Ascorbic Acid [Vitamin C] 1,000 mg PO DAILY 02/23/24 02/23/24 History Benazepril HCl [Lotensin] 20 mg PO DAILY 02/23/24 02/23/24 History Allergies Allergy/AdvReac Type Severity Reaction Status Date / Time No Known Allergies Allergy Verified 02/23/24 10:13 Physical Exam Vitals: Vital Signs Temp Pulse Resp BP Pulse Ox 02/23/24 10:00 92 22 160/92 96 02/23/24 09:30 90 17 152/98 95 02/23/24 09:22 98.6 F 89 18 152/98 97 Intake and Output 02/22/24 02/23/24 02/23/24 22:59 06:59 14:59 Other: Weight 99.337 kg Results 02/23/24 09:35 02/23/24 09:35 Cardiac Enzymes 02/23/24 02/23/24 Range/Units 09:35 09:35 AST 25 (17-59) U/L Troponin I <0.012 (0.000-0.034) ng/mL Coagulation 02/23/24 Range/Units 09:35 PT 10.6 (10.0-12.5) sec APTT 23.4 (22.0-30.0) sec CBC 02/23/24 Range/Units 09:35 WBC 5.9 (3.8-10.6) k/uL RBC 4.15 L (4.30-5.90) m/uL Hgb 12.3 L (13.0-17.5) gm/dL Hct 38.3 L (39.0-53.0) % Plt Count 196 (150-450) k/uL Comprehensive Metabolic Panel 02/23/24 Range/Units 09:35 Sodium 139 (137-145) mmol/L Potassium 4.0 (3.5-5.1) mmol/L Chloride 108 H (98-107) mmol/L Carbon Dioxide 25 (22-30) mmol/L BUN 21 H (9-20) mg/dL Creatinine 0.62 L (0.66-1.25) mg/dL Glucose 100 H (74-99) mg/dL Calcium 9.1 (8.4-10.2) mg/dL AST 25 (17-59) U/L ALT 14 (4-49) U/L Alkaline Phosphatase 75 (38-126) U/L Total Protein 7.1 (6.3-8.2) g/dL Albumin 3.9 (3.5-5.0) g/dL Current Medications Generic Name Dose Route Start Last Admin Trade Name Freq PRN Reason Stop Dose Admin Hydrocodone Bitart/Acetaminophen 1 each 02/23/24 11:16 Hydrocodone/Apap 7.5-325mg 1 Each Tab PO Q6HR PRN Pain Ascorbic Acid 1,000 mg 02/24/24 09:00 Ascorbic Acid 500 Mg Tab PO DAILY JAMEY Aspirin 325 mg 02/24/24 09:00 Aspirin 325 Mg Tab PO DAILY JAMEY Cholecalciferol 50 mcg 02/23/24 21:00 Cholecalciferol 25 Mcg (1000 Iu) Tablet PO BID JAMEY Lisinopril 20 mg 02/24/24 09:00 Lisinopril 20 Mg Tab PO DAILY JAMEY Metoprolol Succinate 50 mg 02/23/24 21:00 Metoprolol Succinate (Er) 50 Mg Tab.Er.24h PO BID [facility] Multivitamins/Minerals 1 each 02/23/24 21:00 Vit A,C & E-Gfrqzc-Fghawxlr 1 Each Tab PO BID JAMEY Nitroglycerin 0.4 mg 02/23/24 11:18 Nitroglycerin Sl Tabs 0.4 Mg Tab SUBLINGUAL Q5M PRN Chest Pain Nitroglycerin 1 inch 02/23/24 18:00 Nitroglycerin Oint 1 Inch/Gm Packet TOPICAL Q6HR JAMEY Intake and Output 02/22/24 02/23/24 02/23/24 22:59 06:59 14:59 Other: Weight 99.337 kg Patient Weight 02/24/24 06:59 Weight 99.337 kg 02/23/24 09:35 02/23/24 09:35
[2024-02-23] MEDS: HEPARIN SODIUM 1,000 UN/ML (10ML VL) IV ONE (13:32)
[2024-02-23] MEDS: HEPARIN SOD,PORK IN 0.45% NACL 25,000 UNIT in 0.45% NACL 1 250ML.BAG IV SCH (13:33)
--- NOTE | 2024-02-23 14:58 | P.HPIM ---
History of Present Illness H&P Date: 02/23/24 Chief Complaint: Chest pain This is a pleasant 82-year-old patient who follows with Dr. Whitley. Chronic stable medical conditions include hypertension, hard of hearing, primary osteoarthritis patient month underwent a right total knee arthroplasty. Somewhat limited movement with a four-wheel walker. Around 9 AM today felt a chest pressure going across the chest. No radiation. No dizziness no lightheadedness. No short of breath no perspiration. EMS was called out. Patient's pain subsided in about an hour. No prior cardiac history. Initial troponin negative. Telemetry. Review of systems: GEN.: Tired EYES: None HEENT: Hard of hearing NECK: None RESPIRATORY: None CARDIOVASCULAR: None GASTROINTESTINAL: None GENITOURINARY: None MUSCULOSKELETAL: Joint pains LYMPHATICS: None HEMATOLOGICAL: None PSYCHIATRY: None NEUROLOGICAL: None Social history: Lives alone. No smoking no alcohol. Used to work for [employer]. Currently using of a wheeled walker. Physical examination: VITAL SIGNS: 98.6, 89, 18, 152/98, 97% room air GENERAL: BMI 29.7, reclining bed awake comfortable EYES: Pupils equal. Conjunctiva angela l. HEENT: External appearance of nose and ears normal, oral cavity grossly normal. NECK: JVD not raised; masses not palpable. HEART: First and second heart sounds are normal; no edema. LUNGS: Respiratory rate normal; clear to auscultation. ABDOMEN: Soft, nontender, liver spleen not palpable, no masses palpable. PSYCH: Alert and oriented x3; mood and affect angela l. MUSCULOSKELETAL:No Clubbing/cyanosis;muscles-grossly intact. Dressing over the right knee. Evidence of OA and other joints NEUROLOGICAL: Cranial nerves grossly intact; no facial asymmetry, power and sensation grossly intact. LYMPHATICS: No lymph nodes palpable in the axilla and neck INVESTIGATIONS, reviewed in the clinical context: February 23, 2024: White count 5.9 hemoglobin 12.3 platelets 196 sodium 139 potassium 4 BUN 21 creatinine 0.62 Troponin I less than 0.012 EKG tracing personally reviewed by me-possible atrial fibrillation. Rate 97. Right bundle miri block pattern. Chest CTA: Negative for PE Assessment plan: -Possible unstable angina. Cardiac risk factors include age. Serial troponins. Telemetry. -Right bundle miri block on EKG -Primary osteoarthritis Pain medications as needed -Chronic, hard of hearing -BPH Flomax 0.4 mg a day -Essential hypertension Toprol-XL, benazepril -Gait dysfunction. Uses a wheeled walker at baseline. After recent right total knee arthroplasty. -Full code Cardiology was consulted. On IV heparin. Pending serial cardiac enzymes third set. Currently no chest pain. Past Medical History Past Medical History: No Reported History Additional Past Medical History / Comment(s): Bilateral hearing aids. History of Any Multi-Drug Resistant Organisms: None Reported Past Surgical History: Joint Replacement Additional Past Surgical History / Comment(s): Lens placed in right eye. Left Total knee arthroplasty 05/2023, total R knee 12/2023 Past Anesthesia/Blood Transfusion Reactions: No Reported Reaction Additional Past Anesthesia/Blood Transfusion Reaction / Comment(s): Patient has never general anesthesia. Past Psychological History: Anxiety Smoking Status: Never smoker - Past Family History Mother Family Medical History: No Reported History Medications and Allergies Home Medications Medication Instructions Recorded Confirmed Type Cholecalciferol [Vitamin D3 (25 50 mcg PO BID 05/11/23 02/23/24 History Mcg = 1000 Iu)] Metoprolol Succinate (ER) [Toprol 50 mg PO BID 05/11/23 02/23/24 History XL] Prevagen Extra Strength 1 tab PO DAILY 05/11/23 02/23/24 History Vit C/E/Zn/Coppr/Lutein/Zeaxan 1 cap PO BID 05/11/23 02/23/24 History [Preservision Areds 2 Softgel] HYDROcodone/APAP 7.5-325MG [Canadian 1 tab PO Q6HR PRN #24 tab 12/21/23 02/23/24 Rx 7.5-325] Ascorbic Acid [Vitamin C] 1,000 mg PO DAILY 02/23/24 02/23/24 History Benazepril HCl [Lotensin] 20 mg PO DAILY 02/23/24 02/23/24 History Allergies Allergy/AdvReac Type Severity Reaction Status Date / Time No Known Allergies Allergy Verified 02/23/24 10:13 Physical Exam Vitals: Vital Signs Temp Pulse Resp BP Pulse Ox 02/23/24 13:49 98.4 F 64 18 144/84 96 02/23/24 10:00 92 22 160/92 96 02/23/24 09:30 90 17 152/98 95 02/23/24 09:22 98.6 F 89 18 152/98 97 Intake and Output 02/22/24 02/23/24 02/23/24 22:59 06:59 14:59 Other: Weight 99.337 kg Results CBC & Chem 7: 02/23/24 09:35 02/23/24 09:35 Labs: Abnormal Lab Results - Last 24 Hours (Table) 02/23/24 02/23/24 02/23/24 Range/Units 09:35 09:35 09:35 RBC 4.15 L (4.30-5.90) m/uL Hgb 12.3 L (13.0-17.5) gm/dL Hct 38.3 L (39.0-53.0) % D-Dimer 2.84 H (<0.60) mg/L FEU Chloride 108 H (98-107) mmol/L BUN 21 H (9-20) mg/dL Creatinine 0.62 L (0.66-1.25) mg/dL Glucose 100 H (74-99) mg/dL
[2024-02-23 15:17] LABS: Basophils # (A) 0.1 k/uL (0-0.2); Basophils % (A) 1 %; Eosinophils # (A) 0.2 k/uL (0-0.7); Eosinophils % (A) 3 %; HCT 40.6 % (39.0-53.0); HGB 12.9 gm/dL (13.0-17.5); Lymphocytes # (A) 1.5 k/uL (1.0-4.8); Lymphocytes % (A) 23 %; MCH 29.2 pg (25.0-35.0); MCHC 31.6 g/dL (31.0-37.0); MCV 92.3 fL (80.0-100.0); Mean Platelet Volume 7.8; Monocytes # (A) 0.4 k/uL (0-1.0); Monocytes % (A) 7 %; Neutrophils # (A) 4.1 k/uL (1.3-7.7); Neutrophils % (A) 65 %; Platelet Count 209 k/uL (150-450); RDW 13.6 % (11.5-15.5); WBC 6.3 k/uL (3.8-10.6)
[2024-02-23 15:19] VITALS: RESP 16
--- NOTE | 2024-02-23 17:53 | CA ---
Transthoracic Echo Report Name: Rory Moody Age: 83 Gender: M : 1940 Exam Date: 02/23/2024 12:57 Exam Location: [facility] Ht (in): 72 Wt (lb): 219 Ordering Physician: Cedrick Purdy DO Attending/Referring Phys: [employer] Raiser Operator Melba Johns RDCS Procedure CPT: Indications: CP Cardiac Hx: Technical Quality: Technically difficult study Contrast 1: Total Dose (mL): Contrast 2: Total Dose (mL): MEASUREMENTS (Male / Female) Normal Values 2D ECHO LV Diastolic Diameter PLAX 5.1 cm 4.2 - 5.9 / 3.9 - 5.3 cm LV Systolic Diameter PLAX 3.3 cm IVS Diastolic Thickness 0.8 cm 0.6 - 1.0 / 0.6 - 0.9 cm LVPW Diastolic Thickness 1.1 cm 0.6 - 1.0 / 0.6 - 0.9 cm LV Relative Wall Thickness 0.4 RV Internal Dim ED PLAX 2.5 cm LVOT Diameter 2.3 cm LV Diastolic Volume MOD BP 142.6 cm??? 67 - 155 / 56 - 104 cm??? LV Systolic Volume MOD BP 57.2 cm??? 22 - 58 / 19 - 49 cm??? LV Ejection Fraction MOD BP 59.9 % >= 55 % LV Cardiac Index MOD BP 2558.1 cm???/min???m??? LV Diastolic Volume MOD 4C 154.9 cm??? LV Systolic Volume MOD 4C 60.3 cm??? LV Ejection Fraction MOD 4C 61.1 % LV Cardiac Index MOD 4C 2836.7 cm???/min???m??? LV Diastolic Length 4C 8.1 cm LV Systolic Length 4C 6.9 cm LV Diastolic Volume MOD 2C 130.1 cm??? LV Systolic Volume MOD 2C 48.4 cm??? LV Ejection Fraction MOD 2C 62.8 % LV Cardiac Index MOD 2C 2449.5 cm???/min???m??? LV Diastolic Length 2C 8.0 cm LV Systolic Length 2C 6.1 cm LA Volume 101.5 cm??? 18 - 58 / 22 - 52 cm??? LA Volume Index 44.8 cm???/m??? 16 - 28 cm???/m??? Ascending Aorta Diameter 3.6 cm DOPPLER AV Peak Velocity 134.1 cm/s AV Peak Gradient 7.2 mmHg AV Mean Velocity 93.3 cm/s AV Mean Gradient 3.8 mmHg AV Velocity Time Integral 27.0 cm LVOT Peak Velocity 124.4 cm/s LVOT Peak Gradient 6.2 mmHg LVOT Velocity Time Integral 25.7 cm LVOT Stroke Volume 104.5 cm??? LVOT Stroke Volume Index 47.2 ml/m??? LVOT Cardiac Index 3131.3 cm???/min???m??? AV Area Cont Eq vti 3.9 cm??? AV Area Cont Eq pk 3.8 cm??? MV Area PHT 3.6 cm??? Mitral E Point Velocity 92.5 cm/s Mitral A Point Velocity 87.4 cm/s Mitral E to A Ratio 1.1 MV Deceleration Time 208.6 ms PV Peak Velocity 96.1 cm/s PV Peak Gradient 3.7 mmHg FINDINGS Left Ventricle Left ventricular ejection fraction is estimated at 55-60 %. Left ventricular cavity size normal. No obvious regional wall motion abnormalities. Right Ventricle Right ventricle not well visualized. Right Atrium Right atrium not well visualized. Left Atrium Severely increased left atrial volume. Mildly increased left atrial area. Mitral Valve Structurally normal mitral valve. No mitral stenosis, regurgitation or prolapse.mitral annular calcification. Aortic Valve Trileaflet aortic valve. No aortic valve stenosis or regurgitation. Tricuspid Valve Structurally normal tricuspid valve. No tricuspid stenosis, regurgitation or prolapse. Pulmonic Valve Pulmonic valve not well visualized. No pulmonic stenosis. No pulmonic regurgitation. Pericardium No pericardial effusion. Aorta Normal size aortic root and proximal ascending aorta. CONCLUSIONS Technically difficult study. Normal left ventricular size and systolic function Limited Doppler study with no significant abnormalities Previewed by: Dr. Jacob Rodriguez MD (Electronically Signed) Final Date: 23 Feb 2024 17:52
[2024-02-23] MEDS: NITROGLYCERIN OINT 1 INCH/GM PACKET TOPICAL SCH (18:50)
[2024-02-23] MEDS: CHOLECALCIFEROL 25 MCG (1000 IU) TABLET PO SCH (20:36)
[2024-02-23] MEDS: ATORVASTATIN 40 MG TAB PO SCH (20:36)
[2024-02-23] MEDS: METOPROLOL SUCCINATE (ER) 50 MG TAB.ER.24H PO SCH (20:36)
[2024-02-23] MEDS: VIT A,C & E-LUTEIN-MINERALS 1 EACH TAB PO SCH (20:43)
--- NOTE | 2024-02-24 03:57 | P.PN ---
Subjective Progress Note Date: 02/24/24 History of present illness: This is an 83-year-old male with past medical history of hypertension, recent right knee surgery in November. Patient states he does not have any history of coronary artery disease and does not follow with a signal fitter. We have been asked to evaluate the patient for chest pain. Patient states that he developed chest pain that he is never had before. He denied having any shortness of breath and no dyspnea on exertion. His activity is limited due to recent right knee surgery. He states he had onset of chest pain while he was watching TV. The pain lasted until he got into the truck and gradually went away on his way here. He denies any dizziness no palpitations no syncopal episodes. No PND. No cough or fever. No wheezing. No blood in his stools or urine. He denies history of CVA or seizure. He does have history of smoking and quit many years ago. Patient is seen today in the emergency center waiting for a bed on the observation unit. EKG atrial fibrillation with right bundle branch block. Previous EKGs reviewed and more sinus rhythm. CTA of the chest negative for pulmonary embolism. Laboratory studies: Hemoglobin 12.3. D-dimer 2.84. Sodium 139, potassium 4, BUN 21 creatinine 0.62. Troponin negative x 1. Home cardiac medications: Benazepril 20 mg daily, Toprol XL 50 mg twice daily. Progress note 02/24/2024 Seen and examined at bedside this a.m. Denies any chest pain chest pressure shortness of breath. Comfortable lying up in bed. Admission ECG shows right bundle branch block with atrial fibrillation. On comparing with old ECGs we have never noticed atrial fibrillation in the past. On review of his telemetry it does not appear that he is in atrial fibrillation at present or in the last 8 hours. Physical examination: Gen: This is an 83-year-old male in no acute distress VS: reviewed HEENT: Head is atraumatic, normocephalic. Pupils equal, round. Sclerae is anicteric. NECK: Supple. No JVD. LUNGS: Clear to auscultation. No wheezes or rhonchi. No intercostal retractions. HEART: Regular rate and rhythm. No murmur. ABDOMEN: Soft No tenderness. EXTREMITIES: No pedal edema. No calf tenderness. NEUROLOGICAL: Patient is awake, alert and oriented x3. Assessment: Atypical Chest pain Paroxysmal atrial fibrillation Hypertension Remote history of tobacco use Recent right knee surgery TSH was normal. Troponin x 3 were negative Echo showed preserved LVEF with no resting regional wall motion abnormality. Limited Doppler study for valve function evaluation Plan: Because of his admission ECG showing atrial fibrillation, I would recommend him to be on systemic anticoagulation. I have a detailed discussion about risk of stroke and bleeding. Patient is agreeable to be started on anticoagulation. His hemoglobin is 12.8 I will intensify his antihypertensives because his SBP was 170/90 mmHg. Continue lisinopril 20 mg, add amlodipine 5 mg daily Discontinue aspirin I would recommend outpatient follow-up with primary signal fitter for a stress test and long-term event monitor to look for paroxysmal atrial fibrillation. Okay to d/c Objective - Vital Signs Vital signs: Vital Signs Temp 97.9 F 02/24/24 02:00 Pulse 57 L 02/24/24 02:00 Resp 16 02/24/24 02:00 BP 175/65 02/24/24 02:00 Pulse Ox 95 02/24/24 02:00 FiO2 Intake & Output 02/23/24 02/23/24 02/24/24 06:59 18:59 06:59 Output Total 750 400 Balance -750 -400 Weight 99.337 kg Output: Urine 750 400 Other: Voiding Method Toilet Urinal # Voids 1 # Bowel Movements 1 - Labs CBC & Chem 7: 02/23/24 14:38 02/23/24 09:35 Labs: Abnormal Lab Results - Last 24 Hours (Table) 02/23/24 02/23/24 02/23/24 Range/Units 09:35 09:35 09:35 RBC 4.15 L (4.30-5.90) m/uL Hgb 12.3 L (13.0-17.5) gm/dL Hct 38.3 L (39.0-53.0) % D-Dimer 2.84 H (<0.60) mg/L FEU Chloride 108 H (98-107) mmol/L BUN 21 H (9-20) mg/dL Creatinine 0.62 L (0.66-1.25) mg/dL Glucose 100 H (74-99) mg/dL 02/23/24 Range/Units 14:38 RBC (4.30-5.90) m/uL Hgb 12.9 L (13.0-17.5) gm/dL Hct (39.0-53.0) % D-Dimer (<0.60) mg/L FEU Chloride (98-107) mmol/L BUN (9-20) mg/dL Creatinine (0.66-1.25) mg/dL Glucose (74-99) mg/dL
[2024-02-24 08:45] VITALS: TEMP 98.3
[2024-02-24] MEDS ORDERED: ASPIRIN 81 MG PO SCH (09:00)
[2024-02-24] MEDS ORDERED: PREVAGEN EXTRA STRENGTH PO SCH (09:00)
[2024-02-24] MEDS ORDERED: ASPIRIN 325 MG TAB PO SCH (09:00)
[2024-02-24 09:36] LABS: Basophils # (A) 0.06 X 10*3/uL (0.00-0.10); Eosinophils # (A) 0.17 X 10*3/uL (0.04-0.35); Eosinophils % (A) 2.9 %; HCT 36.7 % (39.6-50.0); HGB 11.4 g/dL (13.0-17.0); MCH 28.6 pg (27.0-32.0); MCHC 31.1 g/dL (32.0-37.0); Mean Platelet Volume 9.9 FL (9.5-12.2); Monocytes # (A) 0.51 X 10*3/uL (0.20-1.00); Monocytes % (A) 8.7 %; NRBC Per 100 WBC 0 X 10*3/uL (0.00-0.01); Neutrophils # (A) 3.67 X 10*3/uL (1.80-7.70); Neutrophils % (A) 63.1 %; Platelet Count 202 X 10*3/uL (140-440); RBC 3.99 X 10*6/uL (4.40-5.60); RDW 13.9 % (11.5-14.5); WBC 5.83 X 10*3/uL (4.50-10.00)
[2024-02-24 10:26] LABS: INR 1.04 sec (0.93-1.11); Prothrombin Time 11.2 sec (9.9-11.9)
[2024-02-24 11:04] LABS: Chol/HDL Ratio 2.98 Ratio; LDL Cholesterol,Calculated 100.3 mg/dL (0.0-131.0)
[2024-02-24] MEDS: lisinopriL 20 MG TAB PO SCH (11:14)
[2024-02-24] MEDS: ASCORBIC ACID 500 MG TAB PO SCH (11:14)
[2024-02-24] MEDS: APIXABAN 5 MG TAB PO SCH (11:14)
[2024-02-24] MEDS: amLODIPine 5 MG TAB PO SCH (11:14)
[2024-02-24 14:26] VITALS: BP 151/74
[2024-02-24 15:17] VITALS: PULSE 62
== END 2024-02-24 15:25 | disposition home or self-care (01) ==
LOC: EC 09:19 → 6NMEDSUR 11:19
PROVIDERS: ADMIT Hospitalist; ATTEND Hospitalist
DX: R07.89 Other chest pain (principal); I45.10 Unspecified right bundle-branch block; N40.0 Benign prostatic hyperplasia without lower urinary tract symptoms; I10 Essential (primary) hypertension; R29.818 Other symptoms and signs involving the nervous system; R79.89 Other specified abnormal findings of blood chemistry; Z97.4 Presence of external hearing-aid; Z96.653 Presence of artificial knee joint, bilateral; Z79.899 Other long term (current) drug therapy
CPT/HCPCS: 96376; 96365; 96366; 99285; 36415; 93005; 93306; 85379; 80061; 80053; 84443; 83735; 84484; 85025 ×2; 85610 ×2; 85730; 71275; G0378 ×2; J1644 ×2; Q9967